=== PATIENT | male | born 1940 | race Caucasian/White ===

== ENCOUNTER 2019-06-09 12:58 | Inpatient (IN) ==
--- NOTE | 2019-06-09 13:11 | Emergency Department Note ---
Disposition Clinical Impression: Pancreatic cancer Qualifiers: Pancreatic malignancy location: unspecified Qualified Code(s): C25.9 - Malignant neoplasm of pancreas, unspecified Disposition: Admitted As Inpatient Condition: Fair Time of Disposition: 15:00 General Adult HPI - General Stated complaint: "sick for a few days- also has cancer" Time Seen by Provider: 06/09/19 13:03 Source: patient, family Mode of arrival: EMS Nursing Notes Reviewed: Yes Vital Signs Reviewed: Yes - History of Present Illness HPI Narrative: Patient is 78 yo man diagnosed with pancreatic cancer approximately 1.5 weeks ago who has not yet started treatment, although he was recently given paracentesis at the [facility] two days ago. He came to ED on 05/09/19 for evaluation of nausea, lack of appetite and difficulty urinating since yesterday. He denies fever, CP, SOB or symptoms of UTI such as burning or increased frequency. - Related Data Home Medications Medication Instructions Recorded Confirmed Haldol 06/09/19 06/09/19 Morphine 06/09/19 Sennosides [Senna] 06/09/19 Allergies Allergy/AdvReac Type Severity Reaction Status Date / Time No Known Allergies Allergy Verified 09/25/17 22:45 All systems ED: reviewed and negative except as stated. Gastrointestinal: Reports: abdominal pain, nausea, vomiting Past Medical History - Past Medical History Attestation: Yes The following information was validated with the patient. Medical history: Reports: arthritis, cancer, coronary artery disease, GERD, hyperlipidemia Surgical history: Reports: herniorrhaphy Psychiatric history: Reports: no psych history - Social History Smoking Status: Never smoker Alcohol use: Reports: none Drug use: Reports: none Physical Exam PE Gen: AOx3, lethargic but arouses to verbal HEENT: No lymphadenopathy. Pupils equal and reactive. Cardio: Regular rate and rhythm, no murmur, no peripheral edema, good perfusion to all extremities, no cyanosis Resp: Equal breath sounds bilaterally, no wheeze, no cough GI: Abdomen distended, tender to palpation in all quadrants. No ecchymoses, no rash. : No suprapubic tenderness or distention MSK: Normal ROM, no joint swelling or erythema Neuro: CNI-XII intact, strength and sensation WNL Psych: Appropriate affect Course Vital Signs Temperature 98.1 F 06/09/19 13:07 Pulse Rate 123 06/09/19 13:07 Respiratory Rate 16 06/09/19 13:07 Blood Pressure 139/106 06/09/19 13:07 O2 Sat by Pulse Oximetry 93 06/09/19 13:07 Temperature 97.9 F 06/09/19 18:44 Pulse Rate 118 06/09/19 18:44 Respiratory Rate 17 06/09/19 18:44 Blood Pressure 119/65 06/09/19 18:44 O2 Sat by Pulse Oximetry 92 06/09/19 18:44 Oxygen Delivery Oxygen Delivery Room Air Medical Decision Making - Medical Records Medical records reviewed: Yes I reviewed the patient's medical records. - Lab Data Lab results reviewed: Yes I reviewed the patient's lab results. Result diagrams: 06/09/19 13:24 06/09/19 13:24 Lab Results 06/09/19 06/09/19 06/09/19 Range/Units 13:24 13:24 13:24 WBC 5.4 (4.3-11.1) K/mcL RBC 4.07 L (4.19-5.50) M/mcL Hgb 12.7 L (12.9-16.9) g/dL Hct 38.7 (37.5-50.1) % MCV 95.1 (83.0-100.0) fL MCH 31.2 (28.0-33.3) pg MCHC 32.8 (31.6-35.5) g/dL RDW 13.2 (11.5-14.5) % Plt Count 213 (140-400) K/mcL MPV 10.0 (9.4-12.4) fL Seg Neutrophils % 64.0 % Band Neutrophils % 14.0 H (0-4) % Lymphocytes % 10.0 % Monocytes % 12.0 % Neutrophils # 4.2 (1.6-8.9) K/mcL Lymphocytes # 0.5 L (0.6-4.6) K/mcL Monocytes # 0.7 (0.0-1.3) K/mcL Platelet Estimate Normal (Normal) Sodium 129 L (136-145) mEq/L Potassium 5.4 H (3.5-5.1) mEq/L Chloride 94 L (98-107) mEq/L Carbon Dioxide 24 (23-29) mEq/L BUN 30 H (8-23) mg/dL Creatinine 0.69 L (0.70-1.30) mg/dL Est GFR ( Amer) > 60 (> 60) Est GFR (Non-Af Amer) > 60 (> 60) BUN/Creatinine Ratio 43 H (6-26) Glucose 118 H (70-105) mg/dL Calculated Osmolality 275 L (280-300) Lactic Acid 1.6 (0.5-2.2) mmol/L Calcium 8.8 (8.6-10.3) mg/dL Total Bilirubin 1.4 H (0.3-1.0) mg/dL AST 43 H (13-39) Units/L ALT 29 (7-52) Units/L Alkaline Phosphatase 318 H (34-104) Units/L Serum Total Protein 6.3 L (6.4-8.9) g/dL Albumin 3.1 L (3.5-5.7) g/dL Globulin 3.2 (2.4-3.5) g/dL Albumin/Globulin Ratio 1.0 L (1.1-2.2) Lipase < 3 L (11-82) Units/L Critical Care Time Critical Care Time: Yes Total Critical Care Time: 30 Attestation: The high probability of a clinically significant, sudden or life threatening deterioration of the [] system(s) required my full and direct attention, intervention and personal management. The aggregate critical care time was [] minutes. This time is in addition to time spent performing reported procedures but includes the following: [] Data Review and interpretation [] Patient assessment and monitoring of vital signs [] Documentation [] Medication orders and management Attestation Statement - Attestation Attestation: I reviewed the residents documentation and agree with the residents assessment and plan of care. I have personally had face to face time with the patient. (Brief History, Brief Exam, and MDM) I personally supervised and was present for the amezquita/critical portions of the following procedures completed by the huy ross: (add procedures performed here). [id number] time provided I attest to supervising the resident physician's interpretation of ECG Patient arrives by EMS complaining of nausea and vomiting. He has a known history of pancreatic cancer. He is clutching the emesis bag at the time of my exam. He is tachycardic upon arrival.
[2019-06-09] MEDS ORDERED: 0.9 % Sodium Chloride 1,000 ML IVC ONE (13:17)
[2019-06-09] MEDS ORDERED: Ondansetron 4 MG/2 ML VIAL IVP ONE (13:17)
[2019-06-09 13:45] LABS: Hematocrit 38.7 % (37.5-50.1); Hemoglobin 12.7 g/dL (12.9-16.9); Mean Corpuscular HGB Conc 32.8 g/dL (31.6-35.5); Mean Corpuscular Hemoglobin 31.2 pg (28.0-33.3); Mean Corpuscular Volume 95.1 fL (83.0-100.0); Monocytes # 0.7 K/mcL (0.0-1.3); Platelet Count 213 K/mcL (140-400); Red Blood Count 4.07 M/mcL (4.19-5.50); Red Cell Distribution Width 13.2 % (11.5-14.5); White Blood Count 5.4 K/mcL (4.3-11.1)
[2019-06-09 14:00] LABS: Alanine Aminotransferase 29 Units/L (7-52); Albumin 3.1 g/dL (3.5-5.7); Alkaline Phosphatase 318 Units/L (34-104); Aspartate Amino Transferase 43 Units/L (13-39); BUN/Creatinine Ratio 43 (6-26); Bilirubin,Total 1.4 mg/dL (0.3-1.0); Blood Urea Nitrogen 30 mg/dL (8-23); Calcium 8.8 mg/dL (8.6-10.3); Carbon Dioxide 24 mEq/L (23-29); Chloride 94 mEq/L (98-107); Globulin 3.2 g/dL (2.4-3.5); Glucose 118 mg/dL (70-105); Lipase < 3 Units/L (11-82); Osmolality,Calculated 275 (280-300); Potassium 5.4 mEq/L (3.5-5.1); Sodium 129 mEq/L (136-145); Total Protein 6.3 g/dL (6.4-8.9); eGFR For African Americans > 60 (> 60); eGFR For Non-African Americans > 60 (> 60)
[2019-06-09 14:25] LABS: Lymphocytes # 0.5 K/mcL (0.6-4.6); Neutrophils # 4.2 K/mcL (1.6-8.9); Platelet Estimate Normal (Normal)
--- NOTE | 2019-06-09 15:00 | Emergency Department Note ---
Disposition Clinical Impression: Pancreatic cancer Qualifiers: Pancreatic malignancy location: unspecified Qualified Code(s): C25.9 - Malignant neoplasm of pancreas, unspecified Disposition: Admitted As Inpatient Condition: Fair Forms: ED Satisfaction Letter Time of Disposition: 15:49 Nausea/Vomiting/Diarrhea HPI - General Chief complaint: ED Nausea/Vomiting/Diarrhea Stated complaint: "sick for a few days- also has cancer" Time Seen by Provider: 06/09/19 13:03 Source: patient, family Mode of arrival: EMS Nursing Notes Reviewed: Yes Vital Signs Reviewed: Yes - History of Present Illness HPI Narrative: Patient is 78 yo man diagnosed w/ pancreatic cancer within last 1.5 weeks who came to ED for nausea and vomiting x one day on 06/09/19. He is not currently receiving treatment for the cancer, but did undergo paracentesis at the [facility] this week. Yesterday he started vomiting and has had little PO intake. His main concern is the nausea. He also has abdominal tenderness, but no CP or SOB. He denies fever, confusion, dysuria, diarrhea or other concerns. - Related Data Home Medications Medication Instructions Recorded Confirmed Haldol 06/09/19 06/09/19 Morphine 06/09/19 Sennosides [Senna] 06/09/19 Allergies Allergy/AdvReac Type Severity Reaction Status Date / Time No Known Allergies Allergy Verified 09/25/17 22:45 All systems ED: reviewed and negative except as stated. Gastrointestinal: Reports: abdominal pain, nausea, vomiting Past Medical History - Past Medical History Attestation: Yes The following information was validated with the patient. Source: patient, obtained from family Medical history: Reports: arthritis, cancer, coronary artery disease, GERD, hyperlipidemia Surgical history: Reports: herniorrhaphy Psychiatric history: Reports: no psych history - Social History Smoking Status: Never smoker Alcohol use: Reports: none Drug use: Reports: none Physical Exam PE Gen: AOx3, le HEENT: No lymphadenopathy. Pupils equal and reactive. Cardio: Regular rate and rhythm, no murmur, no peripheral edema, goood perfusion to all extremities, no cyanosis Resp: Equal breath sounds bilaterally, no wheeze, no cough GI: Abdomen soft, nondistended, nontender to palpation. No ecchymoses, no rash. : No suprapubic tenderness or distention MSK: Normal ROM, no joint swelling or erythema Neuro: CNI-XII intact, strength and sensation WNL Psych: Appropriate affect - General General appearance: lethargic Course Course Narrative: VS stable, mild tachycardia, afebrile, patient has continued nausea. EKG, CT abdomen/pelvis, CXR ordered to evaluate for cardiac, pulmonary and abdominal pathology. 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 Per [facility], ascitic fluid was malignant, without no indications of SBP on gram stain or cytology. Patient feeling better after Reglan and fluid bolus. Surgery consult ruled out acute intervention. Hospitalist agreed with plan to admit for hydration, bowel rest and nausea control. Patient requested to remain at [facility] rather than transfer to [facility]. - Medical Records Medical records reviewed: Yes I reviewed the patient's medical records. - Lab Data Lab results reviewed: Yes I reviewed the patient's lab results. Result diagrams: 06/09/19 13:24 06/09/19 13:24 Lab Results 06/09/19 06/09/19 06/09/19 Range/Units 13:24 13:24 13:24 WBC 5.4 (4.3-11.1) K/mcL RBC 4.07 L (4.19-5.50) M/mcL Hgb 12.7 L (12.9-16.9) g/dL Hct 38.7 (37.5-50.1) % MCV 95.1 (83.0-100.0) fL MCH 31.2 (28.0-33.3) pg MCHC 32.8 (31.6-35.5) g/dL RDW 13.2 (11.5-14.5) % Plt Count 213 (140-400) K/mcL MPV 10.0 (9.4-12.4) fL Seg Neutrophils % 64.0 % Band Neutrophils % 14.0 H (0-4) % Lymphocytes % 10.0 % Monocytes % 12.0 % Neutrophils # 4.2 (1.6-8.9) K/mcL Lymphocytes # 0.5 L (0.6-4.6) K/mcL Monocytes # 0.7 (0.0-1.3) K/mcL Platelet Estimate Normal (Normal) Sodium 129 L (136-145) mEq/L Potassium 5.4 H (3.5-5.1) mEq/L Chloride 94 L (98-107) mEq/L Carbon Dioxide 24 (23-29) mEq/L BUN 30 H (8-23) mg/dL Creatinine 0.69 L (0.70-1.30) mg/dL Est GFR ( Amer) > 60 (> 60) Est GFR (Non-Af Amer) > 60 (> 60) BUN/Creatinine Ratio 43 H (6-26) Glucose 118 H (70-105) mg/dL Calculated Osmolality 275 L (280-300) Lactic Acid 1.6 (0.5-2.2) mmol/L Calcium 8.8 (8.6-10.3) mg/dL Total Bilirubin 1.4 H (0.3-1.0) mg/dL AST 43 H (13-39) Units/L ALT 29 (7-52) Units/L Alkaline Phosphatase 318 H (34-104) Units/L Serum Total Protein 6.3 L (6.4-8.9) g/dL Albumin 3.1 L (3.5-5.7) g/dL Globulin 3.2 (2.4-3.5) g/dL Albumin/Globulin Ratio 1.0 L (1.1-2.2) Lipase < 3 L (11-82) Units/L - Radiology Data Radiology results reviewed: Yes I reviewed the patient's radiology results. Abdomen CT 06/09/19 13:15 IMPRESSION: Moderate amount of ascites. Peritoneal carcinomatosis. Pancreatic body malignant mass with metastatic disease to the liver. Metastatic adenopathy also present in the abdomen. Mild dilation of small bowel loops throughout the abdomen, which may either be due to ileus or low grade distal obstruction. D/ / Mario Beasley MD / Mario Beasley MD Interpreting Provider: Mario Beasley MD Chest X-Ray 06/09/19 13:18 IMPRESSION: Low lung volumes with bibasilar atelectasis. Superimposed pneumonia especially in the right lung base is considered D/ / Mario Beasley MD / Mario Beasley MD Interpreting Provider: Mario Beasley MD - EKG Data EKG attestation: Yes I reviewed and interpreted this EKG. When compared to previous EKG there are: previous EKG unavailable (R) Interpretation: no acute changes
[2019-06-09] MEDS ORDERED: Metoclopramide 10 MG/2 ML VIAL IVP ONE (15:10)
[2019-06-09] MEDS ORDERED: cefTRIAXone 1,000 MG in Water for inj. (sterile) 10 ML IVP ONE (15:18)
[2019-06-09] MEDS ORDERED: Azithromycin 500 MG in 0.9 % Sodium Chloride 250 ML IVPB ONE (15:19)
[2019-06-09] MEDS ORDERED: 0.9 % Sodium Chloride 500 ML IVC ONE (15:20)
--- NOTE | 2019-06-09 16:53 | Internal Med History&Physical ---
<Doreen So - Last Filed: 06/09/19 19:14> Date of Encounter: 06/09/19 Internal Medicine - H&P: HPI History of present illness: Mr. Estrada is a 78 year old male Internal Medicine - H&P: Meds Haldol 06/09/19 [History] Morphine 06/09/19 [History] Sennosides [Senna] 06/09/19 [History] Allergy/AdvReac Type Severity Reaction Status Date / Time No Known Allergies Allergy Verified 09/25/17 22:45 All Systems PM: A 10-system review of systems was performed and is negative for pertinent findings except as documented above in the HPI. - Constitutional Vitals: Temp Pulse Resp BP Pulse Ox 97.9 F 118 17 119/65 92 06/09/19 18:44 06/09/19 18:44 06/09/19 18:44 06/09/19 18:44 06/09/19 18:44 Internal Med - H&P Results - Labs CBC & Chem 7: 06/09/19 13:24 06/09/19 13:24 Labs: Short CBC 06/09/19 Range/Units 13:24 WBC 5.4 (4.3-11.1) K/mcL Hgb 12.7 L (12.9-16.9) g/dL Hct 38.7 (37.5-50.1) % Plt Count 213 (140-400) K/mcL Neutrophils # 4.2 (1.6-8.9) K/mcL BMP 06/09/19 13:24 Sodium 129 L Potassium 5.4 H Chloride 94 L Carbon Dioxide 24 BUN 30 H Creatinine 0.69 L Glucose 118 H Calcium 8.8 Liver Function 06/09/19 Range/Units 13:24 Total Bilirubin 1.4 H (0.3-1.0) mg/dL AST 43 H (13-39) Units/L ALT 29 (7-52) Units/L Alkaline Phosphatase 318 H (34-104) Units/L Albumin 3.1 L (3.5-5.7) g/dL - Impressions ITS Impressions Abdomen CT 06/09/19 13:15 IMPRESSION: Moderate amount of ascites. Peritoneal carcinomatosis. Pancreatic body malignant mass with metastatic disease to the liver. Metastatic adenopathy also present in the abdomen. Mild dilation of small bowel loops throughout the abdomen, which may either be due to ileus or low grade distal obstruction. D/ / Mario Beasley MD / Mario Beasley MD Interpreting Provider: Mario Beasley MD Chest X-Ray 06/09/19 13:18 IMPRESSION: Low lung volumes with bibasilar atelectasis. Superimposed pneumonia especially in the right lung base is considered D/ / Mario Beasley MD / Mario Beasley MD Interpreting Provider: Mario Beasley MD - Time Spent With Patient Total time spent is greater than 50% in coordination of care (as documented) at patient's floor/unit and/or counseling patient: - Attending Attestation I saw evaluated and examined this patient and reviewed objective data including labs and my medical decision-making was reviewed with the Resident Physician. I agree with the documented findings, disposition and treatment plan as described except to any changes set forth below. We independently had [id number] contact with the patient. <ElinaAngie I - Last Filed: 06/09/19 20:00> Date of Encounter: 06/09/19 Time of Encounter: 06:15 Internal Medicine - H&P: HPI History of present illness: Mr. Estrada is a 78 year old male with PMH of pancreatic cancer diagnosed on 2018 with metastasis to liver and lung presented to the hospital with complains of nausea 3 attacks of vomiting in the past 4 days , constipation and feeling of fullness, although he was recently given paracentesis two days ago And Per [facility], ascitic fluid was malignant, without no indications of SBP on gram stain or cytology. patient denies any skin discoloration but he did have Sob specially when he lay back . No chest pain no headaches , no dysuria or decrease UOP . At ER Abdomen CT 06/09/19 showes Moderate amount of ascites ,Peritoneal carcinomatosis.Pancreatic body malignant mass with metastatic disease to the liver.Metastatic adenopathy also present in the abdomen. Mild dilation of small bowel loops throughout the abdomen, which may either be due to ileus or low grade distal obstruction. CXR Low lung volumes with bibasilar atelectasis. Superimposed pneumonia especially in the right lung base is considered . on admission his vitals were T 98.1 , HR 121 , RR 14 , BP 134/74 , LABS NA 125 , K 5.4 C 0.6 BUN 30 glucose 118 , lipase <3 patient was treated with 2 blouses of IV NACL , zofran phenergan and a dose of azithro and rocephin Past Med Surg Social Fam HX - Past Medical History Medical history: arthritis, cancer, coronary artery disease, GERD, hyperlipidemia Additional medical history: pancreatic cancer. recent paracentesis Psychiatric history: no psych history - Past Surgical History Surgical History: herniorrhaphy Additional surgical history: B/L inguinal hernia repairs - Social History Smoking Status: Never smoker Alcohol use: none Drug use: none All Systems PM: A 10-system review of systems was performed and is negative for pertinent findings except as documented above in the HPI. - Constitutional Vitals: Temp Pulse Resp BP Pulse Ox 98.1 F 121 14 134/74 92 06/09/19 13:07 06/09/19 15:43 06/09/19 15:43 06/09/19 15:43 06/09/19 15:43 Exam: General: no acute distress , A&AX3 HEENT: Atraumatic, Normocephaly, sclera unicteric Neck: supple , Full ROM , trachea midline Cardiac: RRR , S1+. S2+ Lungs: Normal Breath Sounds Bilaterally, No Wheeze, Rales, Rhonchi Abdomen: Distende , hard to palpate . Tender ,no organomegaly , -ve bowel sounds , dull to percuss Extremities: bilateral LL edema , Normal Pulses Skin : intact , Normal color Psychiatric : normal affect, normal mood Nuero : alert, normal gait, oriented X3 Internal Med - H&P Results - Labs CBC & Chem 7: 06/09/19 13:24 06/09/19 13:24 Labs: Short CBC 06/09/19 Range/Units 13:24 WBC 5.4 (4.3-11.1) K/mcL Hgb 12.7 L (12.9-16.9) g/dL Hct 38.7 (37.5-50.1) % Plt Count 213 (140-400) K/mcL Neutrophils # 4.2 (1.6-8.9) K/mcL BMP 06/09/19 13:24 Sodium 129 L Potassium 5.4 H Chloride 94 L Carbon Dioxide 24 BUN 30 H Creatinine 0.69 L Glucose 118 H Calcium 8.8 Liver Function 06/09/19 Range/Units 13:24 Total Bilirubin 1.4 H (0.3-1.0) mg/dL AST 43 H (13-39) Units/L ALT 29 (7-52) Units/L Alkaline Phosphatase 318 H (34-104) Units/L Albumin 3.1 L (3.5-5.7) g/dL - Impressions ITS Impressions Abdomen CT 06/09/19 13:15 IMPRESSION: Moderate amount of ascites. Peritoneal carcinomatosis. Pancreatic body malignant mass with metastatic disease to the liver. Metastatic adenopathy also present in the abdomen. Mild dilation of small bowel loops throughout the abdomen, which may either be due to ileus or low grade distal obstruction. D/ / Mario Beasley MD / Mario Beasley MD Interpreting Provider: Mario Beasley MD Chest X-Ray 06/09/19 13:18 IMPRESSION: Low lung volumes with bibasilar atelectasis. Superimposed pneumonia especially in the right lung base is considered D/ / Mario Beasley MD / Mario Beasley MD Interpreting Provider: Mario Beasley MD - Assessment and Plan (1) Hyponatremia Current Visit: Yes Status: Acute Assessment and plan: His Na level is 125 most likley due to hypervolemia due to liver cirrhosis and ascitis will give him 20 mg IV lasix (2) Hyperkalemia Current Visit: Yes Status: Acute Assessment and plan: K is 5.5 will recheck it tomorrow morning 20 mg lasix (3) Constipation Current Visit: Yes Status: Acute Assessment and plan: It could be due to SBO vs side effect of pain killers abdomen CT : There is mild dilation of small bowel loops throughout the abdomen measuring up to 3 cm. Normal caliber of the colon. NPO surgery is consulted senna plus 2 each PO BID Qualifiers: Qualified Code(s): K59.00 - Constipation, unspecified (4) Generalized abdominal fullness Current Visit: Yes Status: Acute Assessment and plan: mostly due to volume overload due to ascitis as a result of metastatic pancreatic cancer CT : There are numerous ill-defined low-density lesions throughout the liver measuring up to approximately 3 cm. There is a mass in the body of the pancreas measuring 5.3 x 4.0 cm on axial image 64. GI/Bowel: There is mild dilation of small bowel loops throughout the abdomen measuring up to 3 cm. Normal caliber of the colon. Peritoneum/Retroperitoneum: There is a moderate amount of diffuse ascites. There is nodularity along the peritoneal lining and throughout the omentum and mesentery. Mildly enlarged lymph nodes are present as well. NPO surgery is consulted IV lasix 20 mg senna plus 2 each PO BID (5) Nausea & vomiting Current Visit: Yes Status: Acute Assessment and plan: patient has aknown history of pancreatic cancer with metastasis NPO zofran PRN Qualifiers: Qualified Code(s): R11.2 - Nausea with vomiting, unspecified (6) Pneumonia Current Visit: Yes Status: Acute Assessment and plan: patient also complains of SOB could be due to pnumonia or volume overload fromn metastatic pancreatic cancer CXR : Low lung volumes with bibasilar atelectasis. Superimposed pneumonia especially in the right lung base is considered we start him on zosin Qualifiers: Qualified Code(s): J18.9 - Pneumonia, unspecified organism (7) Tachycardia Current Visit: Yes Status: Acute Assessment and plan: It could be due to pain or volume overload or pnumonia we treat his pain with oxycodone 5 mg PRN lasix 20 mg zosin day 1 (8) Pancreatic cancer Current Visit: Yes Status: Acute Assessment and plan: patient has metastasis pancreatic cancer diagnose on may 20 his recent paracetesis was positive for malignancy CT : There are numerous ill-defined low-density lesions throughout the liver measuring up to approximately 3 cm. There is a mass in the body of the pancreas measuring 5.3 x 4.0 cm on axial image 64. GI/Bowel: There is mild dilation of small bowel loops throughout the abdomen measuring up to 3 cm. Normal caliber of the colon. Peritoneum/Retroperitoneum: There is a moderate amount of diffuse ascites. There is nodularity along the peritoneal lining and throughout the omentum and mesentery. Mildly enlarged lymph nodes are present as well. NPO surgery is consulted IV lasix 20 mg senna plus 2 each PO BID zofran PRN Qualifiers: Pancreatic malignancy location: unspecified Qualified Code(s): C25.9 - Malignant neoplasm of pancreas, unspecified - Time Spent With Patient Total time spent is greater than 50% in coordination of care (as documented) at patient's floor/unit and/or counseling patient:
[2019-06-09] MEDS ORDERED: Naloxone 0.4 MG/ML INJ IVP PRN (18:44)
[2019-06-09] MEDS ORDERED: Ondansetron 4 MG/2 ML VIAL IVP PRN (18:44)
[2019-06-09] MEDS ORDERED: Furosemide 20 MG/2 ML VIAL IVP ONE (19:45)
[2019-06-09] MEDS ORDERED: *HR* Metoprolol 5 MG/5 ML VIAL IVP PRN (19:57)
[2019-06-09] MEDS: Sennosides/Docusate Sodium TABLET PO SCH (21:45)
[2019-06-10] MEDS: Piperacillin/Tazobactam 3.375 GM in 0.9 % Sodium Chloride Mini Bag 100 ML IVPB SCH ×3 (01:06→16:27)
[2019-06-10 05:27] LABS: Hematocrit 36.6 % (37.5-50.1); Hemoglobin 11.9 g/dL (12.9-16.9); Lymphocytes # 0.3 K/mcL (0.6-4.6); Mean Corpuscular HGB Conc 32.5 g/dL (31.6-35.5); Mean Corpuscular Hemoglobin 31.1 pg (28.0-33.3); Mean Corpuscular Volume 95.6 fL (83.0-100.0); Mean Platelet Volume 9.7 fL (9.4-12.4); Monocytes # 0.7 K/mcL (0.0-1.3); Platelet Count 153 K/mcL (140-400); Red Blood Count 3.83 M/mcL (4.19-5.50); Red Cell Distribution Width 13.3 % (11.5-14.5); White Blood Count 4.3 K/mcL (4.3-11.1)
[2019-06-10 05:34] LABS: INR 1.4; Prothrombin Time 15.7 Seconds (9.4-12.1)
[2019-06-10 06:22] LABS: Neutrophils # 3.3 K/mcL (1.6-8.9); Platelet Estimate Normal (Normal)
--- NOTE | 2019-06-10 07:58 | Internal Med Progress Note ---
<Angie Antoine I - Last Filed: 06/10/19 13:56> Hospitalist Progress Note - Encounter Date of Encounter: 06/10/19 Time of Encounter: 09:05 - Subjective Interval History: Today patient is seen and examined at bedside , Patient still complains of abdominal pain and nausea but improved since yesterday , no vomiting since yesterday , he peed 3 times during the night which is the normal for him , his dyspnea improved . no chest pain , no fever or chills - Exam Vitals: Temp Pulse Resp BP Pulse Ox 98.3 F 115 16 122/81 95 06/10/19 07:35 06/10/19 07:35 06/10/19 07:35 06/10/19 07:35 06/10/19 07:35 Exam: General: no acute distress , A&AX3 HEENT: Atraumatic, Normocephaly, sclera unicteric Neck: supple , Full ROM , trachea midline Cardiac: RRR , S1+. S2+ Lungs: Normal Breath Sounds Bilaterally, No Wheeze, Rales, Rhonchi Abdomen: Distended , hard to palpate . Tender ,no organomegaly , -ve bowel sounds , dull to percussion Extremities: bilateral LL edema , Normal Pulses Skin : intact , Normal color Psychiatric : normal affect, normal mood Nuero : alert, normal gait, oriented X3 - Assessment and Plan (1) Generalized abdominal fullness Current Visit: Yes Status: Acute Assessment and Plan: mostly due to volume overload due to ascitis as a result of metastatic pancreatic cancer CT : There are numerous ill-defined low-density lesions throughout the liver measuring up to approximately 3 cm. There is a mass in the body of the pancreas measuring 5.3 x 4.0 cm on axial image 64. GI/Bowel: There is mild dilation of small bowel loops throughout the abdomen measuring up to 3 cm. Normal caliber of the colon. Peritoneum/Retroperitoneum: There is a moderate amount of diffuse ascites. There is nodularity along the peritoneal lining and throughout the omentum and mesentery. Mildly enlarged lymph nodes are present as well. According to surgery consult : Surgery would not be helpful. I would recommend palliative care received IV lasix 20 mg zofran PRN palliative care is consulted (2) Nausea & vomiting Current Visit: Yes Status: Acute Assessment and Plan: patient has aknown history of pancreatic cancer with metastasis zofran PRN might consider Haldo if no response to zofran (3) Pneumonia Current Visit: Yes Status: Acute Assessment and Plan: patient also complains of SOB could be due to pnumonia or volume overload fromn metastatic pancreatic cancer CXR : Low lung volumes with bibasilar atelectasis. Superimposed pneumonia especially in the right lung base is considered His wbc is 4.2 procalcitonin 1.49 on zosin day 2 06/09/2019 blood cultures are pending (4) Hyponatremia Current Visit: Yes Status: Acute Assessment and Plan: most likley due to hypervolemia due to liver cirrhosis and ascitis or decrease oral intake will give him 20 mg IV lasix his Na today is 132 [id number] yesterday recheck BMP at morning (5) Hyperkalemia Current Visit: Yes Status: Acute Assessment and Plan: resolved . his K today is 4.7 (6) Constipation Current Visit: Yes Status: Acute Assessment and Plan: he is on senna plus 2 BID , no bowel movement yet (7) Tachycardia Current Visit: Yes Status: Acute Assessment and Plan: he is still tachy HR 115 It could be due to pain or volume overload or pneumonia we treat his pain with oxycodone 5 mg PRN for mild pain and 10 mg for moderate to sever pain PRN EKG is ordered (8) Pancreatic cancer Current Visit: Yes Status: Acute Assessment and Plan: diagnosed with metastatic pancreatic cancer. He presented with nausea and vomiting as well as segmental dilation of the small bowel. He did have a paracentesis at the [facility] that demonstrated metastatic pancreatic cancer and the ascites quickly reaccumulated. palliative care consulted - Time Spent with Patient Total time spent is greater than 50% in coordination of care (as documented) at patient's floor/unit and/or counseling patient: Internal Medicine: Result - Labs CBC & Chem 7: 06/10/19 04:49 06/10/19 08:25 Labs: Short CBC 06/09/19 06/10/19 Range/Units 13:24 04:49 WBC 5.4 4.3 (4.3-11.1) K/mcL Hgb 12.7 L 11.9 L (12.9-16.9) g/dL Hct 38.7 36.6 L (37.5-50.1) % Plt Count 213 153 (140-400) K/mcL Neutrophils # 4.2 3.3 (1.6-8.9) K/mcL BMP 06/09/19 13:24 Sodium 129 L Potassium 5.4 H Chloride 94 L Carbon Dioxide 24 BUN 30 H Creatinine 0.69 L Glucose 118 H Calcium 8.8 Liver Function 06/09/19 Range/Units 13:24 Total Bilirubin 1.4 H (0.3-1.0) mg/dL AST 43 H (13-39) Units/L ALT 29 (7-52) Units/L Alkaline Phosphatase 318 H (34-104) Units/L Albumin 3.1 L (3.5-5.7) g/dL - ABG Interpretation ABG results: PT/INR, D-dimer PT 15.7 Seconds (9.4-12.1) H 06/10/19 04:49 - Impressions Impressions Abdomen CT 06/09/19 13:15 IMPRESSION: Moderate amount of ascites. Peritoneal carcinomatosis. Pancreatic body malignant mass with metastatic disease to the liver. Metastatic adenopathy also present in the abdomen. Mild dilation of small bowel loops throughout the abdomen, which may either be due to ileus or low grade distal obstruction. D/ / Mario Beasley MD / Mario Beasley MD Interpreting Provider: Mario Beasley MD Chest X-Ray 06/09/19 13:18 IMPRESSION: Low lung volumes with bibasilar atelectasis. Superimposed pneumonia especially in the right lung base is considered D/ / Mario Beasley MD / Mario Beasley MD Interpreting Provider: Mario Beasley MD Consult Discharge Plan - Plan Referrals: NONE,PCP [Primary Care Provider] - <Doreen So - Last Filed: 06/10/19 22:24> Hospitalist Progress Note - Encounter Date of Encounter: 06/10/19 - Exam Vitals: Temp Pulse Resp BP Pulse Ox 98.2 F 105 17 105/69 94 06/10/19 10:59 06/10/19 10:59 06/10/19 10:59 06/10/19 10:59 06/10/19 10:59 - Time Spent with Patient Total time spent is greater than 50% in coordination of care (as documented) at patient's floor/unit and/or counseling patient: Internal Medicine: Result - Labs CBC & Chem 7: 06/10/19 04:49 06/10/19 08:25 Labs: Short CBC 06/10/19 Range/Units 04:49 WBC 4.3 (4.3-11.1) K/mcL Hgb 11.9 L (12.9-16.9) g/dL Hct 36.6 L (37.5-50.1) % Plt Count 153 (140-400) K/mcL Neutrophils # 3.3 (1.6-8.9) K/mcL BMP 06/10/19 08:25 Sodium 132 L Potassium 4.7 Chloride 99 Carbon Dioxide 22 L BUN 25 H Creatinine 0.59 L Glucose 98 Calcium 8.2 L Liver Function 06/10/19 Range/Units 08:25 Total Bilirubin 1.0 (0.3-1.0) mg/dL AST 35 (13-39) Units/L ALT 24 (7-52) Units/L Alkaline Phosphatase 270 H (34-104) Units/L Albumin 2.7 L (3.5-5.7) g/dL - ABG Interpretation ABG results: PT/INR, D-dimer PT 15.7 Seconds (9.4-12.1) H 06/10/19 04:49 - Attending Attestation I saw evaluated and examined this patient and reviewed objective data including labs and my medical decision-making was reviewed with the Resident Physician. I agree with the documented findings, disposition and treatment plan as described except to any changes set forth below. We independently had [id number] contact with the patient. Patient states abdominal pain stable, abdominal distension is slightly better than yesterday. Denies fevers/chills, n/v. + flatus. Exam: No acute distress, resting in bed, CVS: HR RRR, lungs course throughout, abd: soft, + TTP epigastric region about same since yesterday. Abdominal distension improved. Lower extremity edema 1+ equal bilaterally. VS: Reviewed, episodes of tachycardia persists with some normal HR as well. Afebrile, BP normal. Labs: reviewed, sodium improved from 129 to 132. No leukocytosis. Patient is likely intravascularly volume depleted with peripheral edema. From a comfort measure, he seems to benefit from diuresis with caution. Continue IV Lasix trial and monitor renal function. Continue antibiotics, currently does not appear septic. Prognosis is poor, no surgical intervention is advised after Gen Surgery e valuation. He declined a Palliative consult while hospitalized at [facility] recently, but today is agreeable to a consult. Consult made, await recommendations. <Angie Antoine I - Last Filed: 06/10/19 13:56> (2) Nausea & vomiting Qualifiers: Qualified Code(s): R11.2 - Nausea with vomiting, unspecified (3) Pneumonia Qualifiers: Qualified Code(s): J18.9 - Pneumonia, unspecified organism (6) Constipation Qualifiers: Qualified Code(s): K59.00 - Constipation, unspecified (8) Pancreatic cancer Qualifiers: Pancreatic malignancy location: body of pancreas Qualified Code(s): C25.1 - Malignant neoplasm of body of pancreas
[2019-06-10] MEDS: Sennosides/Docusate Sodium TABLET PO SCH ×2 (08:13→21:12)
[2019-06-10 09:15] LABS: Alanine Aminotransferase 24 Units/L (7-52); Albumin 2.7 g/dL (3.5-5.7); Albumin/Globulin Ratio 0.9 (1.1-2.2); Alkaline Phosphatase 270 Units/L (34-104); Aspartate Amino Transferase 35 Units/L (13-39); BUN/Creatinine Ratio 42 (6-26); Blood Urea Nitrogen 25 mg/dL (8-23); Calcium 8.2 mg/dL (8.6-10.3); Carbon Dioxide 22 mEq/L (23-29); Chloride 99 mEq/L (98-107); Glucose 98 mg/dL (70-105); Osmolality,Calculated 278 (280-300); Potassium 4.7 mEq/L (3.5-5.1); Sodium 132 mEq/L (136-145); Total Protein 5.7 g/dL (6.4-8.9); eGFR For African Americans > 60 (> 60); eGFR For Non-African Americans > 60 (> 60)
[2019-06-10] MEDS ORDERED: *HR* Metoprolol 5 MG/5 ML VIAL IVP ONE (09:39)
--- NOTE | 2019-06-10 10:33 | AcuteCare Surgery Consult Note ---
Date of Encounter: 06/10/19 Time of Encounter: 07:40 Assessment and Plan (1) Pancreatic cancer Current Visit: Yes Status: Acute The patient is seen and evaluated with the acute care surgery team. He has nausea and vomiting associated with widely metastatic intraperitoneal pancreatic cancer. Surgery would not be helpful. I would recommend palliative care Qualifiers: Pancreatic malignancy location: body of pancreas Qualified Code(s): C25.1 - Malignant neoplasm of body of pancreas History of Present Illness Consult date: 06/10/19 Reason for consult: other History of present illness: The patient is seen and evaluated on morning rounds with the acute care surgery team. I personally reviewed his CAT scan of the abdomen. The patient has been diagnosed with metastatic pancreatic cancer. He presented with nausea and vomiting as well as segmental dilation of the small bowel. He does not have a nasogastric tube in and is not vomiting at time of evaluation. He did have a paracentesis at the [facility] that demonstrated metastatic pancreatic cancer and the ascites quickly reaccumulated. Next I personally reviewed the CAT scan of the abdomen. He has a large mid body pancreatic mass as well as omental caking and ascites. He also has adenopathy. Findings are consistent with widely metastatic intra-abdominal pancreatic cancer. Surgery will not be helpful at this point. This may be a terminal event. I would recommend palliative care management Past Med Surg Social Fam HX - Past Medical History Medical history: arthritis, cancer, coronary artery disease, GERD, hyperlipidemia Additional medical history: pancreatic cancer. recent paracentesis Psychiatric history: no psych history - Past Surgical History Surgical History: herniorrhaphy Additional surgical history: B/L inguinal hernia repairs - Social History Smoking Status: Never smoker Alcohol use: none Drug use: none Medications and Allergies Haloperidol 0.5 mg PO Q6H PRN 06/09/19 [History] Morphine Sulfate Immed Rel [Morphine Sulfate] 15 mg PO Q2H PRN 06/09/19 [History] Sennosides [Senna] 8.6 mg PO BID 06/09/19 [History] Atorvastatin Calcium [Lipitor] 20 mg PO DAILY 06/10/19 [History] Pantoprazole Sodium [Protonix] 40 mg PO DAILY 06/10/19 [History] Allergy/AdvReac Type Severity Reaction Status Date / Time cephalexin Allergy Hives Verified 06/10/19 10:25 clobetasol Allergy Hives Verified 06/10/19 10:25 prednisone Allergy Hives Verified 06/10/19 10:25 Review of Systems All systems PM: The remainder of the systems were reviewed and are negative General Surgery Exam Initial Vital Signs Temp Pulse Resp BP Pulse Ox 98.1 F 123 16 139/106 93 06/09/19 13:07 06/09/19 13:07 06/09/19 13:07 06/09/19 13:07 06/09/19 13:07 - General physical appearance moderate distress, cachectic, chronically ill - Respiratory normal respiratory effort, clear to auscultation - Cardiovascular Cardiovascular exam: Present: RRR, no murmurs/rubs/gallops - Abdomen Abdomen general surgery: Present: bowel sounds present, soft, non tender, distended (The patient has extensive ascites on physical examination) - Neurologic Present: CN 2-12 grossly intact, normal coordination, normal sensation - Psychiatric Psychiatric general surgery: Present: appropriate, oriented to person, oriented to place, oriented to time, speech is normal, memory intact Exam Initial Vital Signs Temp Pulse Resp BP Pulse Ox 98.1 F 123 16 139/106 93 06/09/19 13:07 06/09/19 13:07 06/09/19 13:07 06/09/19 13:07 06/09/19 13:07 Results - Labs 06/10/19 04:49 06/10/19 08:25 Abnormal lab results RBC 3.83 M/mcL (4.19-5.50) L 06/10/19 04:49 Hgb 11.9 g/dL (12.9-16.9) L 06/10/19 04:49 Hct 36.6 % (37.5-50.1) L 06/10/19 04:49 Band Neutrophils % 16.0 % (0-4) H 06/10/19 04:49 Lymphocytes # 0.3 K/mcL (0.6-4.6) L 06/10/19 04:49 PT 15.7 Seconds (9.4-12.1) H 06/10/19 04:49 Sodium 132 mEq/L (136-145) L 06/10/19 08:25 Potassium 5.4 mEq/L (3.5-5.1) H 06/09/19 13:24 Chloride 94 mEq/L (98-107) L 06/09/19 13:24 Carbon Dioxide 22 mEq/L (23-29) L 06/10/19 08:25 BUN 25 mg/dL (8-23) H 06/10/19 08:25 Creatinine 0.59 mg/dL (0.70-1.30) L 06/10/19 08:25 BUN/Creatinine Ratio 42 (6-26) H 06/10/19 08:25 Glucose 118 mg/dL (70-105) H 06/09/19 13:24 Calculated Osmolality 278 (280-300) L 06/10/19 08:25 Calcium 8.2 mg/dL (8.6-10.3) L 06/10/19 08:25 Total Bilirubin 1.4 mg/dL (0.3-1.0) H 06/09/19 13:24 AST 43 Units/L (13-39) H 06/09/19 13:24 Alkaline Phosphatase 270 Units/L (34-104) H 06/10/19 08:25 Serum Total Protein 5.7 g/dL (6.4-8.9) L 06/10/19 08:25 Albumin 2.7 g/dL (3.5-5.7) L 06/10/19 08:25 Albumin/Globulin Ratio 0.9 (1.1-2.2) L 06/10/19 08:25 Lipase < 3 Units/L (11-82) L 06/09/19 13:24 Procalcitonin 1.49 ng/mL (0.00-0.15) H 06/09/19 20:08 Diabetes panel 06/09/19 06/10/19 Range/Units 13:24 08:25 Sodium 129 L 132 L (136-145) mEq/L Potassium 5.4 H 4.7 (3.5-5.1) mEq/L Chloride 94 L 99 (98-107) mEq/L Carbon Dioxide 24 22 L (23-29) mEq/L BUN 30 H 25 H (8-23) mg/dL Creatinine 0.69 L 0.59 L (0.70-1.30) mg/dL Glucose 118 H 98 (70-105) mg/dL Calcium 8.8 8.2 L (8.6-10.3) mg/dL AST 43 H 35 (13-39) Units/L ALT 29 24 (7-52) Units/L Alkaline Phosphatase 318 H 270 H (34-104) Units/L Albumin 3.1 L 2.7 L (3.5-5.7) g/dL Calcium panel 06/09/19 06/10/19 Range/Units 13:24 08:25 Calcium 8.8 8.2 L (8.6-10.3) mg/dL Albumin 3.1 L 2.7 L (3.5-5.7) g/dL Pituitary panel 06/09/19 06/10/19 Range/Units 13:24 08:25 Sodium 129 L 132 L (136-145) mEq/L Potassium 5.4 H 4.7 (3.5-5.1) mEq/L Chloride 94 L 99 (98-107) mEq/L Carbon Dioxide 24 22 L (23-29) mEq/L BUN 30 H 25 H (8-23) mg/dL Creatinine 0.69 L 0.59 L (0.70-1.30) mg/dL Glucose 118 H 98 (70-105) mg/dL Calcium 8.8 8.2 L (8.6-10.3) mg/dL Adrenal panel 06/09/19 06/10/19 Range/Units 13:24 08:25 Sodium 129 L 132 L (136-145) mEq/L Potassium 5.4 H 4.7 (3.5-5.1) mEq/L Chloride 94 L 99 (98-107) mEq/L Carbon Dioxide 24 22 L (23-29) mEq/L BUN 30 H 25 H (8-23) mg/dL Creatinine 0.69 L 0.59 L (0.70-1.30) mg/dL Glucose 118 H 98 (70-105) mg/dL Calcium 8.8 8.2 L (8.6-10.3) mg/dL Total Bilirubin 1.4 H 1.0 (0.3-1.0) mg/dL AST 43 H 35 (13-39) Units/L ALT 29 24 (7-52) Units/L Alkaline Phosphatase 318 H 270 H (34-104) Units/L Albumin 3.1 L 2.7 L (3.5-5.7) g/dL All other labs normal. - Imaging CT scan - abdomen: image reviewed (The CAT scan of the abdomen is reviewed. The patient has a large pancreatic mass as well as ascites and omental caking findings are consistent with widely metastatic and chronic cancer) Consult Discharge Plan - Plan Referrals: NONE,PCP [Primary Care Provider] -
[2019-06-10] MEDS ORDERED: Furosemide 20 MG/2 ML VIAL IVP ONE (11:43)
--- NOTE | 2019-06-10 13:48 | Electrocardiograph Report ---
[place] [id number] Test Date: 2019-06-09 Pat Name: Stas Estrada Department: [id number] Room: 3A42 Gender: M [employer]: : 1940 Requested By: [id number] Order Number: [id number] Reading MD: Benson Red Measurements Intervals [place] Rate: 122 P: 41 [place]: 127 QRS: -11 QRSD: 77 T: 44 QT: 294 QTc: 419 Interpretive Statements Sinus tachycardia Low voltage, precordial leads Electronically Signed On 06-10-2019 13:47:15 EDT by Benson Red
--- NOTE | 2019-06-10 16:06 | Palliative - Consult Note ---
<Nehal Holley B - Last Filed: 06/10/19 16:40> Date of Encounter: 06/10/19 Time of Encounter: 03:20 - Assessment and Plan (1) Goals of care, counseling/discussion Current Visit: Yes Status: Acute Assessment and plan: Discussed patient's goals of care. Discussed patients understanding of the current situation as per HPI. Patient has knowledge of his diagnosis. He currently is feeling fearful of his diagnosis. His goals are wanting to return home, and he does not want to go to a long-term or a rehab facility. He says that he has friends and neighbors who can assist him at home, as well as a planned home health aide through [facility] [employer]. While he is currently his own decision maker, his sister Connie is his POA. At this time patient reports wanting to have chest compressions, but has a fear of intubation. Will continue to keep patient full code at this time. He states that he would want his sister to decide in the moment as to what should be done. Will plan to have a family discussion tomorrow with patient and his sister to further discuss goals of care. (2) Constipation Current Visit: Yes Status: Acute Assessment and plan: Currently receiving Senna Plus Qualifiers: Constipation type: other constipation type Qualified Code(s): K59.09 - Other constipation (3) Nausea & vomiting Current Visit: Yes Status: Acute Assessment and plan: reports improvement on current medication management Qualifiers: Qualified Code(s): R11.2 - Nausea with vomiting, unspecified (4) Pancreatic cancer Current Visit: Yes Status: Chronic Qualifiers: Pancreatic malignancy location: body of pancreas Qualified Code(s): C25.1 - Malignant neoplasm of body of pancreas Palliative-CN HPI - Data of Consult Requesting Physician: Doreen So MD Primary Care Provider: PCP NONE - Consult Narrative Palliative Care/Comfort Measures: Palliative care Reason for consult: Goals of Care History of present illness: Mr. Estrada is a 78 year old male presenting for nausea and vomiting with a recent diagnosis of pancreatic cancer diagnosed on 05/20/2019 with metastasis to liver and lung. Patient states that since being in the hosptial medications are helping his symptoms He says that his nausea is "in-between" and that he is nto hungry, but he has been able to keep down liquids. He does report 5/10 pain over his whole abdomen and say that nothing helps the pain but nothing makes it worse. He says he is not passing gas and has not em a bowel movement for 3-4 days. He says he usually has a bowel movement every other day. Patient is aware of his diagnosis of pancreatic cancer causing ascites. He says that he thinks his oncologist wants to do chemo, and he em an appointment on July 03 with an [facility] oncologist. He says that he is fearful about his diagnosis He says that his goals are to be able to maintain his independence, and that he wants to be able to continue to live at home. He is currently living at home, and while he has not yet had home health services, he has it set up through [facility] for when he returns home. He says that his sister is his POA, but that at the moment he is still able to make medical decisions for himself. When attempting to discuss code status the patient states that he wants his sister to decide what to do in the moment. He says that his sister should be visiting tomorrow, and he is willing to have a family meeting then. CC: Doreen So MD - Time Spent with Patient Time: Total time spent is greater than 50% in coordination of care (as documented) at patient's floor/unit and/or counseling patient: Time with patient: 30 minutes Past Med Surg Social Fam HX - Past Medical History Medical history: arthritis, cancer, coronary artery disease, GERD, hyperlipidemia Additional medical history: pancreatic cancer. recent paracentesis Psychiatric history: no psych history - Past Surgical History Surgical History: herniorrhaphy Additional surgical history: B/L inguinal hernia repairs - Social History Smoking Status: Never smoker Alcohol use: none Drug use: none Medications and Allergies Haloperidol 0.5 mg PO Q6H PRN 06/09/19 [History] Morphine Sulfate Immed Rel [Morphine Sulfate] 15 mg PO Q2H PRN 06/09/19 [History] Sennosides [Senna] 8.6 mg PO BID 06/09/19 [History] Atorvastatin Calcium [Lipitor] 20 mg PO DAILY 06/10/19 [History] Pantoprazole Sodium [Protonix] 40 mg PO DAILY 06/10/19 [History] Allergy/AdvReac Type Severity Reaction Status Date / Time cephalexin Allergy Hives Verified 06/10/19 10:25 clobetasol Allergy Hives Verified 06/10/19 10:25 prednisone Allergy Hives Verified 06/10/19 10:25 - Constitutional Constitutional ROS PAL: decreased appetite - EENT Eyes: as per HPI - Cardiovascular Cardiovascular ROS: no chest pain - Respiratory Respiratory: no cough - Gastrointestinal Gastrointestinal: abdominal pain, change in bowel habits, constipation, nausea - Genitourinary Genitourinary ROS male: as per HPI - Musculoskeletal Musculoskeletal ROS IM: as per HPI - Neurological Neurological ROS: as per HPI Palliative Care-Exam - Constitutional Vitals: Temp Pulse Resp BP Pulse Ox 98.2 F 105 17 105/69 94 06/10/19 10:59 06/10/19 10:59 06/10/19 10:59 06/10/19 10:59 06/10/19 10:59 General appearance: Present: thin Exam: Patient is thin with a distended abdomen - Head Head Exam: Present: atraumatic, normocephalic - Eye Eye exam: Present: normal appearance - ENT ENT exam: Present: mucous membranes moist - Neck Neck exam: Present: full ROM - Respiratory Respiratory exam: Present: CTAB. Absent: respiratory distress - Cardiovascular Cardiovascular exam: Present: RRR, +S1, +S2. Absent: +S3, +S4 - GI/Abdominal Exam GI/Abdominal exam: Present: diminished bowel sounds, distended, firm, tenderness - Expanded GI/Abdominal Exam GI/Abdominal exam: Present: ascites - Rectal Rectal Exam: Present: deferred - Extremities Exam Extremities exam: Present: pedal edema Additional comments: +1 pitting edema BL lower extremity - Neurological Exam Neurological exam: Present: alert, oriented X3 - Psychiatric Psychiatric exam: Present: normal affect, normal mood Internal Medicine - CN: Reslt - Labs CBC & Chem 7: 06/10/19 04:49 06/10/19 08:25 Labs: Short CBC 06/10/19 Range/Units 04:49 WBC 4.3 (4.3-11.1) K/mcL Hgb 11.9 L (12.9-16.9) g/dL Hct 36.6 L (37.5-50.1) % Plt Count 153 (140-400) K/mcL Neutrophils # 3.3 (1.6-8.9) K/mcL BMP 06/10/19 08:25 Sodium 132 L Potassium 4.7 Chloride 99 Carbon Dioxide 22 L BUN 25 H Creatinine 0.59 L Glucose 98 Calcium 8.2 L Liver Function 06/10/19 Range/Units 08:25 Total Bilirubin 1.0 (0.3-1.0) mg/dL AST 35 (13-39) Units/L ALT 24 (7-52) Units/L Alkaline Phosphatase 270 H (34-104) Units/L Albumin 2.7 L (3.5-5.7) g/dL - ABG Interpretation ABG results: PT/INR, D-dimer PT 15.7 Seconds (9.4-12.1) H 06/10/19 04:49 Consult Discharge Plan - Plan Referrals: NONE,PCP [Primary Care Provider] - Palliative Quality Palliative Quality: Screen for Code Status: Yes, Screen for Goals of Care: Yes, Screen for Pain: Yes, If Pain Regimen Started, Initiate Bowel Regimen: NA, Screen for Nausea/Vomitting: Yes Code Status: 06/09/19 18:44 Resuscitation Status: Active [RES] Routine Comment: Resuscitation Status: Full Code <Elly Oliver - Last Filed: 06/10/19 17:03> Date of Encounter: 06/10/19 Palliative-CN HPI - Data of Consult Requesting Physician: Doreen So MD Primary Care Provider: PCP NONE - Consult Narrative History of present illness: Mr. Estrada is a 78 year old male CC: Doreen So MD - Time Spent with Patient Time: Total time spent is greater than 50% in coordination of care (as documented) at patient's floor/unit and/or counseling patient: Palliative Care-Exam - Constitutional Vitals: Temp Pulse Resp BP Pulse Ox 98.2 F 105 17 105/69 94 06/10/19 10:59 06/10/19 10:59 06/10/19 10:59 06/10/19 10:59 06/10/19 10:59 Internal Medicine - CN: Reslt - Labs CBC & Chem 7: 06/10/19 04:49 06/10/19 08:25 Labs: Short CBC 06/10/19 Range/Units 04:49 WBC 4.3 (4.3-11.1) K/mcL Hgb 11.9 L (12.9-16.9) g/dL Hct 36.6 L (37.5-50.1) % Plt Count 153 (140-400) K/mcL Neutrophils # 3.3 (1.6-8.9) K/mcL BMP 06/10/19 08:25 Sodium 132 L Potassium 4.7 Chloride 99 Carbon Dioxide 22 L BUN 25 H Creatinine 0.59 L Glucose 98 Calcium 8.2 L Liver Function 06/10/19 Range/Units 08:25 Total Bilirubin 1.0 (0.3-1.0) mg/dL AST 35 (13-39) Units/L ALT 24 (7-52) Units/L Alkaline Phosphatase 270 H (34-104) Units/L Albumin 2.7 L (3.5-5.7) g/dL - ABG Interpretation ABG results: PT/INR, D-dimer PT 15.7 Seconds (9.4-12.1) H 06/10/19 04:49 - Attending Attestation I examined this patient and my medical decision-making was reviewed with the Resident Physician. I agree with the documented findings, disposition and treatment plan as described except to the extent set forth below. Pt with recently diagnosed pancreatic cancer, presented with nausea and vomiting. CT abdomen shows large mid body pancreatic mass as well as omental ca rabia and ascites. Surgery recommended palliative management. Palliative care consult for goal of care. Pt was mostly comfortable, states pain and nausea was mostly controlled. Incomplete goals of care discussion with pt as documented in resident's note, he appeared scared and unwilling to elaborate on most points, not realistic about the extent of his disease and prognosis, and deferring most decisions to his sister Connie. Plan to meet with pt and sister tomorrow at 10am for further GOC and advanced care planning. Palliative Quality Code Status: 06/09/19 18:44 Resuscitation Status: Active [RES] Routine Comment: Resuscitation Status: Full Code
[2019-06-11] MEDS: Piperacillin/Tazobactam 3.375 GM in 0.9 % Sodium Chloride Mini Bag 100 ML IVPB SCH ×4 (00:33→23:55)
[2019-06-11 06:14] LABS: Basophils % 0.2 %; Eosinophils # 0.1 K/mcL (0.0-0.6); Eosinophils % 1.5 %; Hematocrit 37.6 % (37.5-50.1); Hemoglobin 12.4 g/dL (12.9-16.9); Immature Granulocytes % 1.7 % (0-4); Lymphocytes # 0.3 K/mcL (0.6-4.6); Lymphocytes % 3.6 %; Mean Corpuscular Hemoglobin 30.6 pg (28.0-33.3); Mean Corpuscular Volume 92.8 fL (83.0-100.0); Mean Platelet Volume 10.3 fL (9.4-12.4); Monocytes # 1.1 K/mcL (0.0-1.3); Monocytes % 13.3 %; Neutrophils # 6.6 K/mcL (1.6-8.9); Platelet Count 174 K/mcL (140-400); Red Blood Count 4.05 M/mcL (4.19-5.50); Red Cell Distribution Width 13.2 % (11.5-14.5); Segmented Neutrophils % 79.7 %
[2019-06-11 06:15] LABS: INR 1.4; Prothrombin Time 15.4 Seconds (9.4-12.1)
[2019-06-11 06:18] LABS: White Blood Count 8.3 K/mcL (4.3-11.1)
[2019-06-11 06:35] LABS: Alanine Aminotransferase 24 Units/L (7-52); Albumin 2.6 g/dL (3.5-5.7); Albumin/Globulin Ratio 0.9 (1.1-2.2); Alkaline Phosphatase 313 Units/L (34-104); Aspartate Amino Transferase 39 Units/L (13-39); BUN/Creatinine Ratio 42 (6-26); Bilirubin,Total 0.8 mg/dL (0.3-1.0); Blood Urea Nitrogen 23 mg/dL (8-23); Calcium 7.9 mg/dL (8.6-10.3); Carbon Dioxide 22 mEq/L (23-29); Chloride 100 mEq/L (98-107); Globulin 2.8 g/dL (2.4-3.5); Glucose 111 mg/dL (70-105); Osmolality,Calculated 282 (280-300); Potassium 4.1 mEq/L (3.5-5.1); Sodium 134 mEq/L (136-145); Total Protein 5.4 g/dL (6.4-8.9); eGFR For African Americans > 60 (> 60); eGFR For Non-African Americans > 60 (> 60)
[2019-06-11 06:59] LABS: Platelet Estimate Normal (Normal)
[2019-06-11] MEDS: Sennosides/Docusate Sodium TABLET PO SCH ×2 (08:46→21:39)
--- NOTE | 2019-06-11 09:00 | Internal Med Progress Note ---
<Cristina Bob - Last Filed: 06/11/19 12:58> Hospitalist Progress Note - Encounter Date of Encounter: 06/11/19 Time of Encounter: 09:40 - Exam Vitals: Temp Pulse Resp BP Pulse Ox 97.7 F 114 18 123/83 93 06/11/19 11:58 06/11/19 11:58 06/11/19 11:58 06/11/19 11:58 06/11/19 11:58 - Assessment and Plan (1) Pneumonia Current Visit: Yes Status: Suspected (2) Malignant ascites Current Visit: Yes Status: Acute (3) Peritoneal carcinomatosis Current Visit: Yes Status: Acute (4) Abdominal pain Current Visit: Yes Status: Acute (5) Hyponatremia Current Visit: Yes Status: Acute (6) Tachycardia Current Visit: Yes Status: Chronic (7) Pancreatic cancer Current Visit: Yes Status: Chronic - Time Spent with Patient Total time spent is greater than 50% in coordination of care (as documented) at patient's floor/unit and/or counseling patient: Internal Medicine: Result - Labs CBC & Chem 7: 06/11/19 05:20 06/11/19 05:20 Labs: Short CBC 06/11/19 Range/Units 05:20 WBC 8.3 D (4.3-11.1) K/mcL Hgb 12.4 L (12.9-16.9) g/dL Hct 37.6 (37.5-50.1) % Plt Count 174 (140-400) K/mcL Neutrophils # 6.6 (1.6-8.9) K/mcL BMP 06/11/19 05:20 Sodium 134 L Potassium 4.1 Chloride 100 Carbon Dioxide 22 L BUN 23 Creatinine 0.55 L Glucose 111 H Calcium 7.9 L Liver Function 06/11/19 Range/Units 05:20 Total Bilirubin 0.8 (0.3-1.0) mg/dL AST 39 (13-39) Units/L ALT 24 (7-52) Units/L Alkaline Phosphatase 313 H (34-104) Units/L Albumin 2.6 L (3.5-5.7) g/dL - ABG Interpretation ABG results: PT/INR, D-dimer PT 15.4 Seconds (9.4-12.1) H 06/11/19 05:20 Consult Discharge Plan - Plan Referrals: NONE,PCP [Primary Care Provider] - - Attending Attestation I saw evaluated and examined this patient and reviewed objective data including labs and my medical decision-making was reviewed with the Resident Physician, Gustavo Antoine. I agree with the documented findings, disposition and treatment plan as described except to any changes set forth below. We independently had [id number] contact with the patient. Pneumonia: Most likely aspiration pneumonia. Continue Zosyn. Pancreatic cancer with malignant ascites and peritoneal carcinomatosis: Poor prognosis overall. Nonsurgical candidate. Recommended palliative care. Family meeting with palliative care today. We will await results of meeting. Given his malignant ascites, consideration should be given for placement of Pleurx catheter to drain has ascites fluid for palliative reasons. If patient is willing for this, we will consult interventional radiology. Pain control. Constipation: Patient on senna plus. We will add Dulcolax. If patient does not have bowel movements, consider edema. Sinus tachycardia: Improved. Continue to monitor heart rate. Could be related to pain. Patient is not significantly anemic. Hemoglobin 12.4. Not septic. We will check thyroid profile. Hyponatremia: Improved. Sodium 134. Anticoagulation with subcutaneous Lovenox <Angie Antoine I - Last Filed: 06/11/19 15:04> Hospitalist Progress Note - Encounter Date of Encounter: 06/11/19 - Subjective Interval History: Today patient is seen and examined at bedside , His abdominal pain and nausea improved . no bowel motion yet but did pass gas . His dyspnea improved . no chest pain , no fever or chills - Exam Vitals: Temp Pulse Resp BP Pulse Ox 98.0 F 109 17 112/74 94 06/11/19 06:34 06/11/19 06:34 06/11/19 06:34 06/11/19 06:34 06/11/19 06:34 Exam: General: no acute distress , A&AX3 HEENT: Atraumatic, Normocephaly, sclera unicteric Neck: supple , Full ROM , trachea midline Cardiac: RRR , S1+. S2+ Lungs: Normal Breath Sounds Bilaterally, No Wheeze, Rales, Rhonchi Abdomen: Distended , hard to palpate . Tender ,no organomegaly , -ve bowel sounds , dull to percussion Extremities: bilateral LL edema , Normal Pulses Skin : intact , Normal color Psychiatric : normal affect, normal mood Nuero : alert, normal gait, oriented X3 - Assessment and Plan (1) Generalized abdominal fullness Current Visit: Yes Status: Acute Assessment and Plan: Pancreatic cancer with malignant ascites and peritoneal carcinomatosis -pain controlled with oxycodone -no surgical intervention recommended -Palliative care consulted : prefer to return home at this point of time , but he said he will put hospice care in his consideration . code status changed to DNR-CC , there should be another meeting with the family tomorrow (2) Nausea & vomiting Current Visit: Yes Status: Acute Assessment and Plan: responding well to Zofran will continue zofran PRN (3) Pneumonia Current Visit: Yes Status: Suspected Assessment and Plan: mostly aspiration pneumonia CXR : Low lung volumes with bibasilar atelectasis. Superimposed pneumonia especially in the right lung base is considered His wbc is 8.3 06/09/2019 blood cultures are pending continue zosin day 3 (4) Hyponatremia Current Visit: Yes Status: Acute Assessment and Plan: improved . his Na level today is 134 (5) Hyperkalemia Current Visit: Yes Status: Acute Assessment and Plan: resolved (6) Constipation Current Visit: Yes Status: Acute Assessment and Plan: he is on senna plus 2 BID , no bowel movement yet , we added bisacodyl (7) Tachycardia Current Visit: Yes Status: Chronic Assessment and Plan: Improved. Could be related to pain. Patient is not significantly anemic. Hemoglobin 12.4. Not septic. We will check thyroid profile. Continue to monitor heart rate . we discontinued Lopressor PRN (8) Pancreatic cancer Current Visit: Yes Status: Chronic Assessment and Plan: diagnosed with metastatic pancreatic cancer. He presented with nausea and vomiting as well as segmental dilation of the small bowel. He did have a paracentesis at the [facility] that demonstrated metastatic pancreatic cancer and the ascites quickly reaccumulated. DVT Prophylaxis: SQ enoxaparin . - Time Spent with Patient Total time spent is greater than 50% in coordination of care (as documented) at patient's floor/unit and/or counseling patient: Internal Medicine: Result - Labs CBC & Chem 7: 06/11/19 05:20 06/11/19 05:20 Labs: Short CBC 06/11/19 Range/Units 05:20 WBC 8.3 D (4.3-11.1) K/mcL Hgb 12.4 L (12.9-16.9) g/dL Hct 37.6 (37.5-50.1) % Plt Count 174 (140-400) K/mcL Neutrophils # 6.6 (1.6-8.9) K/mcL BMP 06/10/19 06/11/19 08:25 05:20 Sodium 132 L 134 L Potassium 4.7 4.1 Chloride 99 100 Carbon Dioxide 22 L 22 L BUN 25 H 23 Creatinine 0.59 L 0.55 L Glucose 98 111 H Calcium 8.2 L 7.9 L Liver Function 06/10/19 06/11/19 Range/Units 08:25 05:20 Total Bilirubin 1.0 0.8 (0.3-1.0) mg/dL AST 35 39 (13-39) Units/L ALT 24 24 (7-52) Units/L Alkaline Phosphatase 270 H 313 H (34-104) Units/L Albumin 2.7 L 2.6 L (3.5-5.7) g/dL - ABG Interpretation ABG results: PT/INR, D-dimer PT 15.4 Seconds (9.4-12.1) H 06/11/19 05:20 <Cristina Bob - Last Filed: 06/11/19 12:58> (1) Pneumonia Qualifiers: Pneumonia type: aspiration pneumonia Aspiration pneumonia type: due to regurgitated food Laterality: right Lung location: lower lobe of lung Qualified Code(s): J69.0 - Pneumonitis due to inhalation of food and vomit (4) Abdominal pain Qualifiers: Abdominal location: generalized Qualified Code(s): R10.84 - Generalized abdominal pain (7) Pancreatic cancer Qualifiers: Pancreatic malignancy location: body of pancreas Qualified Code(s): C25.1 - Malignant neoplasm of body of pancreas <ElinaAngie I - Last Filed: 06/11/19 15:04> (2) Nausea & vomiting Qualifiers: Qualified Code(s): R11.14 - Bilious vomiting (3) Pneumonia Qualifiers: Qualified Code(s): J69.0 - Pneumonitis due to inhalation of food and vomit (6) Constipation Qualifiers: Qualified Code(s): K59.09 - Other constipation (8) Pancreatic cancer Qualifiers: Qualified Code(s): C25.1 - Malignant neoplasm of body of pancreas
--- NOTE | 2019-06-11 10:05 | Palliative Progress Note ---
<KishanSuriNehal B - Last Filed: 06/11/19 14:58> Date of Encounter: 06/11/19 Time of Encounter: 07:45 - Assessment and plan (1) Goals of care, counseling/discussion Current Visit: Yes Status: Acute Assessment and plan: Patient is agreeable to change his code status to DNR-CC. Patient signed DNR form. Had a goals of care discussion with the patient as well as with the patients sister by telephone. Discussed consideration of hospice care and the patients goals. The patient would prefer to be able to return home at this point in time. A determination on hospice care is being held at this time, and another family meeting is planned for tomorrow to allow time for patient and his sister to process the new information about hospice care and to determine the best course of action for the patient. Patient does report that he is willing to consider hospice care. Patient denies fear and depression and this point in time. He is very religiously driven in his views on life, however he does not want to speak with a staple cutter at this time. (2) Constipation Current Visit: Yes Status: Acute Assessment and plan: Patient receiving Senna Plus Reports having passing of gas Qualifiers: Constipation type: other constipation type Qualified Code(s): K59.09 - Other constipation (3) Nausea & vomiting Current Visit: Yes Status: Acute Assessment and plan: Pt has Zofran PRN for nausea Qualifiers: Vomiting type: bilious vomiting Qualified Code(s): R11.14 - Bilious vomiting (4) Pancreatic cancer Current Visit: Yes Status: Chronic Assessment and plan: Patient has been being seen by [facility]- Astrid Seaman He has a follow up appointment on July 03 Qualifiers: Pancreatic malignancy location: body of pancreas Qualified Code(s): C25.1 - Malignant neoplasm of body of pancreas (5) Abdominal pain Current Visit: Yes Status: Acute Assessment and plan: Change oxycodone to 10mg SL every 6 hours Continue oxycodone 5mg SL PRN for breakthrough pain Qualifiers: Abdominal location: generalized Qualified Code(s): R10.84 - Generalized abdominal pain (6) Malignant ascites Current Visit: Yes Status: Acute Assessment and plan: Recommend a pluerx catheter for management of quickly accumulating ascites. Discussed with IM attending. - Time Spent With Patient Total time spent is greater than 50% in coordination of care (as documented) at patient's floor/unit and/or counseling patient: Greater than 35 minutes - Subjective Interval history: Mr. Estrada is a 78 year old male presenting for nausea and vomiting with a recent diagnosis of pancreatic cancer diagnosed on 05/20/2019 with metastasis to liver and lung. He reports increasing abdominal pain today reporting that it is a 6-7/10. He does say that pain medications do help with his pain. He says that his nausea is "not so bad". He did have an episode of vomiting during the interview this morning, but states it was due to him having issues with his dentures. He says that he has been able to drink liquids only at this time. He denies having any bowel movements, but reports that he is passing gas at this time. One of his friends is at his bedside today. He continues to have abdominal pain throughout the day. Had a phone conversation with patient and his sister Connie, who is the patients POA. Discussed their understanding of the patients current condition. Also discussed the role of hospice care. Family is wanting time to make a decision. Patient was agreeable at this time for DNR-CC. - Constitutional Vitals: Abnormal lab results RBC 4.05 M/mcL (4.19-5.50) L 06/11/19 05:20 Hgb 12.4 g/dL (12.9-16.9) L 06/11/19 05:20 Hct 36.6 % (37.5-50.1) L 06/10/19 04:49 Band Neutrophils % 16.0 % (0-4) H 06/10/19 04:49 Lymphocytes # 0.3 K/mcL (0.6-4.6) L 06/11/19 05:20 PT 15.4 Seconds (9.4-12.1) H 06/11/19 05:20 Sodium 134 mEq/L (136-145) L 06/11/19 05:20 Potassium 5.4 mEq/L (3.5-5.1) H 06/09/19 13:24 Chloride 94 mEq/L (98-107) L 06/09/19 13:24 Carbon Dioxide 22 mEq/L (23-29) L 06/11/19 05:20 BUN 25 mg/dL (8-23) H 06/10/19 08:25 Creatinine 0.55 mg/dL (0.70-1.30) L 06/11/19 05:20 BUN/Creatinine Ratio 42 (6-26) H 06/11/19 05:20 Glucose 111 mg/dL (70-105) H 06/11/19 05:20 Calculated Osmolality 278 (280-300) L 06/10/19 08:25 Calcium 7.9 mg/dL (8.6-10.3) L 06/11/19 05:20 Total Bilirubin 1.4 mg/dL (0.3-1.0) H 06/09/19 13:24 AST 43 Units/L (13-39) H 06/09/19 13:24 Alkaline Phosphatase 313 Units/L (34-104) H 06/11/19 05:20 Serum Total Protein 5.4 g/dL (6.4-8.9) L 06/11/19 05:20 Albumin 2.6 g/dL (3.5-5.7) L 06/11/19 05:20 Albumin/Globulin Ratio 0.9 (1.1-2.2) L 06/11/19 05:20 Lipase < 3 Units/L (11-82) L 06/09/19 13:24 Procalcitonin 1.49 ng/mL (0.00-0.15) H 06/09/19 20:08 - Head Head exam: Present: atraumatic, normocephalic - Eye Eye exam: Present: normal appearance - Neck Neck exam: Present: full ROM - Respiratory Respiratory exam: Present: CTAB. Absent: rales, rhonchi, stridor - Cardiovascular Cardiovascular exam: Present: +S1, +S2, tachycardia - GI/Abdominal GI/Abdominal exam: Present: diminished bowel sounds, distended, firm - Expanded Abdominal Exam GI/Abdominal exam: Present: ascites - Extremities Exam Extremities exam: Present: pedal edema (+1 bl lower extremity pitting edema) - Neurological Exam Neurological exam: Present: alert, oriented X3 - Psychiatric Psychiatric exam: Present: normal affect, normal mood Palliative Quality Palliative Quality: Screen for Code Status: Yes, Screen for Goals of Care: Yes, Screen for Pain: Yes, If Pain Regimen Started, Initiate Bowel Regimen: NA, Screen for Nausea/Vomitting: Yes Code Status: 06/09/19 18:44 Resuscitation Status: Active [RES] Routine Comment: Resuscitation Status: Full Code - Labs CBC & Chem 7: 06/11/19 05:20 06/11/19 05:20 Labs: Laboratory Results - last 24 hr 06/11/19 06/11/19 06/11/19 05:20 05:20 05:20 WBC 8.3 D RBC 4.05 L Hgb 12.4 L Hct 37.6 MCV 92.8 MCH 30.6 MCHC 33.0 RDW 13.2 Plt Count 174 MPV 10.3 Immature Gran % 1.7 Seg Neutrophils % 79.7 Lymphocytes % 3.6 Monocytes % 13.3 Eosinophils % 1.5 Basophils % 0.2 Neutrophils # 6.6 Lymphocytes # 0.3 L Monocytes # 1.1 Eosinophils # 0.1 Basophils # 0.0 Platelet Estimate Normal PT 15.4 H INR 1.4 Sodium 134 L Potassium 4.1 Chloride 100 Carbon Dioxide 22 L BUN 23 Creatinine 0.55 L Est GFR ( Amer) > 60 Est GFR (Non-Af Amer) > 60 BUN/Creatinine Ratio 42 H Glucose 111 H Calculated Osmolality 282 Calcium 7.9 L Total Bilirubin 0.8 AST 39 ALT 24 Alkaline Phosphatase 313 H Serum Total Protein 5.4 L Albumin 2.6 L Globulin 2.8 Albumin/Globulin Ratio 0.9 L - ABG Interpretation ABG results: PT/INR, D-dimer PT 15.4 Seconds (9.4-12.1) H 06/11/19 05:20 Consult Discharge Plan - Plan Referrals: NONE,PCP [Primary Care Provider] - <Elly Oliver - Last Filed: 06/11/19 16:04> Date of Encounter: 06/11/19 - Time Spent With Patient Total time spent is greater than 50% in coordination of care (as documented) at patient's floor/unit and/or counseling patient: >70 minutes - Constitutional Vitals: Abnormal lab results RBC 4.05 M/mcL (4.19-5.50) L 06/11/19 05:20 Hgb 12.4 g/dL (12.9-16.9) L 06/11/19 05:20 Hct 36.6 % (37.5-50.1) L 06/10/19 04:49 Band Neutrophils % 16.0 % (0-4) H 06/10/19 04:49 Lymphocytes # 0.3 K/mcL (0.6-4.6) L 06/11/19 05:20 PT 15.4 Seconds (9.4-12.1) H 06/11/19 05:20 Sodium 134 mEq/L (136-145) L 06/11/19 05:20 Potassium 5.4 mEq/L (3.5-5.1) H 06/09/19 13:24 Chloride 94 mEq/L (98-107) L 06/09/19 13:24 Carbon Dioxide 22 mEq/L (23-29) L 06/11/19 05:20 BUN 25 mg/dL (8-23) H 06/10/19 08:25 Creatinine 0.55 mg/dL (0.70-1.30) L 06/11/19 05:20 BUN/Creatinine Ratio 42 (6-26) H 06/11/19 05:20 Glucose 111 mg/dL (70-105) H 06/11/19 05:20 Calculated Osmolality 278 (280-300) L 06/10/19 08:25 Calcium 7.9 mg/dL (8.6-10.3) L 06/11/19 05:20 Total Bilirubin 1.4 mg/dL (0.3-1.0) H 06/09/19 13:24 AST 43 Units/L (13-39) H 06/09/19 13:24 Alkaline Phosphatase 313 Units/L (34-104) H 06/11/19 05:20 Serum Total Protein 5.4 g/dL (6.4-8.9) L 06/11/19 05:20 Albumin 2.6 g/dL (3.5-5.7) L 06/11/19 05:20 Albumin/Globulin Ratio 0.9 (1.1-2.2) L 06/11/19 05:20 Lipase < 3 Units/L (11-82) L 06/09/19 13:24 Procalcitonin 1.49 ng/mL (0.00-0.15) H 06/09/19 20:08 - Attending Attestation I examined this patient and my medical decision-making was reviewed with the Resident Physician Dr. Holley. I agree with the documented findings, disposition and treatment plan as described except to the extent set forth below. 1000: When first seen today pt was having episodes of vomiting. Zofran given by nurse. Abdomen appears more tense and tender than yesterday. Patient otherwise not complaining of pain. Sister was not present at the bedside. Subsequently sister was reached and stated to be in her way in. [id number]: Pt was not feeling nauseous at this time, complaining of left flank pain. Sister Connie had left. Called and reached Connie on speaker phone. Discussed with Stas and Connie current medical condition, trajectory of illness, treatment options and overall poor prognosis. Stas has 2 sisters and a grand-daughter. Sister Connie is his MPOA. They are both aware that pt is in terminal phase of pancreatic cancer, and asking for options. Patient so far was living alone, with no medicare in place. Talked about the philosophy and services offered by hospice as well as possible settings. Explained that in a home setting hospice would not cover 24hrs care, also pt will likely need to private pay if d/c to SNF with hospice care. Patient ideally would like to return home, but does understand that he will soon need a higher level of care. Connie would like more information. Plan: - Abdomina pain: by the end of the meeting, pt appeared in pain crisis, holding his abdomen. He was given 1 dose of Oxycodone, oxycodone 10 mg changed to scheduled q6hrs with 5mg prn. - Family Meeting scheduled with Connie tomorrow at 10am. account liaison nurse Jyoti was made aware to meet with pt and Connie. - Discussed with Dr. Bob, pt will need a Pleurx catheter for comfort. IR consult placed and called, pt will be scheduled for tomorrow. - ACP: Discussed code status, pt decided for DNRCC. Form filled and added to pt's chart. I spent 20 minutes total time with patient, family member(s) and/or surrogate discussing advance care planning to include explanation/discussion of advanced directives. Please note this time was additional time spent with patient, fami ly and/or surrogate not involving active management of patient's conditions or treatments. 1500: notified that pt remains in increasing pain, despite oral Oxycodone. Pt was seen and was sitting on the edge of the bed, asking for medication. Dilaudid 4mg IV once given. Will change prn doses to Dilaudid IV img q4hrs. Palliative Quality Code Status: 06/09/19 18:44 Resuscitation Status: Active [RES] Routine Comment: Resuscitation Status: Full Code 06/11/19 14:01 DNR [Resuscitation Status: Active] [RES] Routine Comment: Resuscitation Status: DNR-Comfort Care - Labs CBC & Chem 7: 06/11/19 05:20 06/11/19 05:20 Labs: Laboratory Results - last 24 hr 06/11/19 06/11/19 06/11/19 05:20 05:20 05:20 WBC 8.3 D RBC 4.05 L Hgb 12.4 L Hct 37.6 MCV 92.8 MCH 30.6 MCHC 33.0 RDW 13.2 Plt Count 174 MPV 10.3 Immature Gran % 1.7 Seg Neutrophils % 79.7 Lymphocytes % 3.6 Monocytes % 13.3 Eosinophils % 1.5 Basophils % 0.2 Neutrophils # 6.6 Lymphocytes # 0.3 L Monocytes # 1.1 Eosinophils # 0.1 Basophils # 0.0 Platelet Estimate Normal PT 15.4 H INR 1.4 Sodium 134 L Potassium 4.1 Chloride 100 Carbon Dioxide 22 L BUN 23 Creatinine 0.55 L Est GFR ( Amer) > 60 Est GFR (Non-Af Amer) > 60 BUN/Creatinine Ratio 42 H Glucose 111 H Calculated Osmolality 282 Calcium 7.9 L Total Bilirubin 0.8 AST 39 ALT 24 Alkaline Phosphatase 313 H Serum Total Protein 5.4 L Albumin 2.6 L Globulin 2.8 Albumin/Globulin Ratio 0.9 L TSH 1.404 Free T4 1.02 - ABG Interpretation ABG results: PT/INR, D-dimer PT 15.4 Seconds (9.4-12.1) H 06/11/19 05:20
[2019-06-11] MEDS: Ondansetron 4 MG/2 ML VIAL IVP PRN ×3 (10:23→20:20)
--- NOTE | 2019-06-11 11:15 | Electrocardiograph Report ---
[place] [address] Test Date: 2019-06-10 Pat Name: tSas Estrada Department: 115 Room: 3A42 Gender: M Room Service Supervisor: : [id number] Requested By: Angie Antoine Order Number: [id number] Reading MD: Abran Johnson Measurements Intervals Geraldine Rate: 111 P: 34 RI: 125 QRS: -7 QRSD: 75 T: 30 QT: 314 QTc: 380 Interpretive Statements SINUS TACHYCARDIA LOW QRS VOLTAGE IN PRECORDIAL LEADS ABNORMAL RHYTHM ECG Electronically Signed On 06-11-2019 11:13:29 EDT by Abran Johnson
[2019-06-11 13:57] LABS: Thyroid Stimulating Hormone 1.404 mcIU/mL (0.340-5.600)
[2019-06-11] MEDS: *HR* Enoxaparin 40 MG/0.4 ML SYRINGE SQ SCH (14:06)
[2019-06-11] MEDS ORDERED: *HR* HYDROmorphone 2 MG/ML SYRINGE IVP ONE (15:28)
[2019-06-11] MEDS: *HR* HYDROmorphone 2 MG/ML SYRINGE IVP PRN ×2 (16:12→20:20)
[2019-06-11] MEDS: Metoprolol XL (24 HR) Succ 25 MG TAB.ER.24H PO SCH (17:05)
[2019-06-12 05:57] LABS: Basophils # 0.1 K/mcL (0.0-0.2); Basophils % 0.6 %; Eosinophils # 0.1 K/mcL (0.0-0.6); Eosinophils % 0.4 %; Hematocrit 39.5 % (37.5-50.1); Hemoglobin 12.8 g/dL (12.9-16.9); Immature Granulocytes % 2.3 % (0-4); Lymphocytes # 0.4 K/mcL (0.6-4.6); Lymphocytes % 2.7 %; Mean Corpuscular HGB Conc 32.4 g/dL (31.6-35.5); Mean Corpuscular Hemoglobin 30.2 pg (28.0-33.3); Mean Corpuscular Volume 93.2 fL (83.0-100.0); Mean Platelet Volume 10.2 fL (9.4-12.4); Monocytes # 1.5 K/mcL (0.0-1.3); Platelet Count 184 K/mcL (140-400); Red Blood Count 4.24 M/mcL (4.19-5.50); Red Cell Distribution Width 13.6 % (11.5-14.5)
[2019-06-12 06:02] LABS: Neutrophils # 13.8 K/mcL (1.6-8.9); White Blood Count 16.2 K/mcL (4.3-11.1)
[2019-06-12] MEDS: *HR* Enoxaparin 40 MG/0.4 ML SYRINGE SQ SCH (06:06)
[2019-06-12 06:18] LABS: Alanine Aminotransferase 24 Units/L (7-52); Albumin 2.6 g/dL (3.5-5.7); Albumin/Globulin Ratio 0.9 (1.1-2.2); Alkaline Phosphatase 323 Units/L (34-104); Aspartate Amino Transferase 34 Units/L (13-39); BUN/Creatinine Ratio 42 (6-26); Bilirubin,Total 0.8 mg/dL (0.3-1.0); Blood Urea Nitrogen 27 mg/dL (8-23); Carbon Dioxide 22 mEq/L (23-29); Chloride 99 mEq/L (98-107); Glucose 115 mg/dL (70-105); Osmolality,Calculated 284 (280-300); Potassium 4.4 mEq/L (3.5-5.1); Sodium 134 mEq/L (136-145); Total Protein 5.6 g/dL (6.4-8.9); eGFR For African Americans > 60 (> 60); eGFR For Non-African Americans > 60 (> 60)
[2019-06-12] MEDS: Metoprolol XL (24 HR) Succ 25 MG TAB.ER.24H PO SCH (09:33)
[2019-06-12] MEDS: Sennosides/Docusate Sodium TABLET PO SCH ×2 (09:33→20:28)
[2019-06-12] MEDS: Piperacillin/Tazobactam 3.375 GM in 0.9 % Sodium Chloride Mini Bag 100 ML IVPB SCH ×3 (09:33→23:43)
--- NOTE | 2019-06-12 10:43 | Palliative Progress Note ---
Date of Encounter: 06/12/19 Time of Encounter: 10:00 - Assessment and plan (1) Abdominal pain Current Visit: Yes Status: Acute Assessment and plan: scheduled pain medication appears effective. Pt received 2 prn doses of hydromorphone yesterday. He is stoic and not likely to ask for prn doses unless the pain is unbearable. continue oxycodone to 10mg SL every 6 hours and hydromorphone 1mg q2hrs prn. Qualifiers: Abdominal location: generalized Qualified Code(s): R10.84 - Generalized abdominal pain (2) Nausea & vomiting Current Visit: Yes Status: Acute Assessment and plan: continue zofran prn Qualifiers: Vomiting type: bilious vomiting Qualified Code(s): R11.14 - Bilious vomiting (3) Goals of care, counseling/discussion Current Visit: Yes Status: Acute Assessment and plan: 20 minutes meeting this morning with patient and sister Connie. Connie confirmed that she is the MPOA and the forms were given to nurse to put in the chart. Reviewed current medical condition and plan. Connie have reached out to the rest of the family and the pt's gnosticist family. She stated they are all working on a system to ensure that pt will have someone around with him at all times. Patient continues to be agreeable with hospice care, as long as he can return home. Family would like pt to be evaluated for mobility, will request PT after IR procedure. Pain medication to be adjusted after procedure, and evaluate mobility and feed ing. Plan to discharge tomorrow if stable per primary hospitalist. [facility] referral called. (4) Malignant ascites Current Visit: Yes Status: Acute Assessment and plan: scheduled for pleurx cath by IR today for management of quickly accumulating ascites (5) Pancreatic cancer Current Visit: Yes Status: Chronic Qualifiers: Pancreatic malignancy location: body of pancreas Qualified Code(s): C25.1 - Malignant neoplasm of body of pancreas (6) Palliative care encounter Current Visit: Yes Status: Acute - Time Spent With Patient Total time spent is greater than 50% in coordination of care (as documented) at patient's floor/unit and/or counseling patient: Greater than 35 minutes - Subjective Interval history: Patiet was lying in bed, abdominal pain is better and he denies episodes of vomiting today. He is still feeling tense and bloated, and looking forward to the scheduled paracentesis. Pain medication needs increased from yesterday. - Constitutional Vitals: Abnormal lab results WBC 16.2 K/mcL (4.3-11.1) H D 06/12/19 05:22 RBC 4.05 M/mcL (4.19-5.50) L 06/11/19 05:20 Hgb 12.8 g/dL (12.9-16.9) L 06/12/19 05:22 Hct 36.6 % (37.5-50.1) L 06/10/19 04:49 Band Neutrophils % 16.0 % (0-4) H 06/10/19 04:49 Neutrophils # 13.8 K/mcL (1.6-8.9) H 06/12/19 05:22 Lymphocytes # 0.4 K/mcL (0.6-4.6) L 06/12/19 05:22 Monocytes # 1.5 K/mcL (0.0-1.3) H 06/12/19 05:22 PT 15.4 Seconds (9.4-12.1) H 06/11/19 05:20 Sodium 134 mEq/L (136-145) L 06/12/19 05:22 Potassium 5.4 mEq/L (3.5-5.1) H 06/09/19 13:24 Chloride 94 mEq/L (98-107) L 06/09/19 13:24 Carbon Dioxide 22 mEq/L (23-29) L 06/12/19 05:22 BUN 27 mg/dL (8-23) H 06/12/19 05:22 Creatinine 0.64 mg/dL (0.70-1.30) L 06/12/19 05:22 BUN/Creatinine Ratio 42 (6-26) H 06/12/19 05:22 Glucose 115 mg/dL (70-105) H 06/12/19 05:22 Calculated Osmolality 278 (280-300) L 06/10/19 08:25 Calcium 8.0 mg/dL (8.6-10.3) L 06/12/19 05:22 Total Bilirubin 1.4 mg/dL (0.3-1.0) H 06/09/19 13:24 AST 43 Units/L (13-39) H 06/09/19 13:24 Alkaline Phosphatase 323 Units/L (34-104) H 06/12/19 05:22 Serum Total Protein 5.6 g/dL (6.4-8.9) L 06/12/19 05:22 Albumin 2.6 g/dL (3.5-5.7) L 06/12/19 05:22 Albumin/Globulin Ratio 0.9 (1.1-2.2) L 06/12/19 05:22 Lipase < 3 Units/L (11-82) L 06/09/19 13:24 Procalcitonin 1.49 ng/mL (0.00-0.15) H 06/09/19 20:08 Exam: Vitals reviewed General appearance: alert, oriented x3, appears uncomfortable Eyes: nonicteric, EOMI Neck: supple, no lymphadenopathy, no JVD Chest: bilateral: normal breath sounds, normal effort Cardiovascular: regular rate and rhythm, no murmur, rub, gallop Gastrointestinal: tense and distended, tender to touch, ascites present. Extremities: pedal edema, no clubbing, normal capillary refill Neurologic: AAOxa, non-focal exam Psych: mood appropriate, affect normal Palliative Quality Palliative Quality: Screen for Code Status: Yes, Screen for Goals of Care: Yes, Screen for Pain: Yes, If Pain Regimen Started, Initiate Bowel Regimen: NA, Scre en for Nausea/Vomitting: Yes Code Status: 06/09/19 18:44 Resuscitation Status: Active [RES] Routine Comment: Resuscitation Status: Full Code 06/11/19 14:01 DNR [Resuscitation Status: Active] [RES] Routine Comment: Resuscitation Status: DNR-Comfort Care - Labs CBC & Chem 7: 06/12/19 05:22 06/12/19 05:22 Labs: Laboratory Results - last 24 hr 06/11/19 06/12/19 06/12/19 05:20 05:22 05:22 WBC 16.2 H D RBC 4.24 Hgb 12.8 L Hct 39.5 MCV 93.2 MCH 30.2 MCHC 32.4 RDW 13.6 Plt Count 184 MPV 10.2 Immature Gran % 2.3 Seg Neutrophils % 85.0 Lymphocytes % 2.7 Monocytes % 9.0 Eosinophils % 0.4 Basophils % 0.6 Neutrophils # 13.8 H Lymphocytes # 0.4 L Monocytes # 1.5 H Eosinophils # 0.1 Basophils # 0.1 Sodium 134 L 134 L Potassium 4.1 4.4 Chloride 100 99 Carbon Dioxide 22 L 22 L BUN 23 27 H Creatinine 0.55 L 0.64 L Est GFR ( Amer) > 60 > 60 Est GFR (Non-Af Amer) > 60 > 60 BUN/Creatinine Ratio 42 H 42 H Glucose 111 H 115 H Calculated Osmolality 282 284 Calcium 7.9 L 8.0 L Total Bilirubin 0.8 0.8 AST 39 34 ALT 24 24 Alkaline Phosphatase 313 H 323 H Serum Total Protein 5.4 L 5.6 L Albumin 2.6 L 2.6 L Globulin 2.8 3.0 Albumin/Globulin Ratio 0.9 L 0.9 L TSH 1.404 Free T4 1.02 - ABG Interpretation ABG results: PT/INR, D-dimer PT 15.4 Seconds (9.4-12.1) H 06/11/19 05:20 Consult Discharge Plan - Plan Referrals: Jeovany Calero Jr, MD [Non-Partnered Physician] -
--- NOTE | 2019-06-12 16:27 | Internal Med Progress Note ---
<Nohemy Hammer E - Last Filed: 06/12/19 16:25> Hospitalist Progress Note - Encounter Date of Encounter: 06/12/19 Time of Encounter: 09:45 - Subjective Interval History: Mr. Estrada is a 78-year-old male initially presented due to crease work of breathing Patient was seen and examined at side today and was in no acute distress at that time. He stated that he was in no pain and was just wondering about how the Pleurx catheter worked. Patient denied any chest pain, shortness of breath, abdominal pain, nausea, vomiting, diarrhea. - Exam Vitals: Temp Pulse Resp BP Pulse Ox 97.4 F L 101 15 124/85 92 06/12/19 15:12 06/12/19 15:12 06/12/19 15:12 06/12/19 15:12 06/12/19 15:12 Exam: General: AAO 3, no acute distress, answers questions appropriately Head: normocephalic, atraumatic Eyes: LIANA, no icterus Cardio: RRR, no murmurs, rubs, or gallops Respiratory: CTAB, no wheezing, rhonchi, rales Abd: Hyperactive bowel sounds, distended abdomen Extremities: nonpitting edema at the ankles, pulses equal bilaterally, warm Skin: warm, dry, intact - Assessment and Plan (1) Pancreatic cancer Current Visit: Yes Status: Chronic Assessment and Plan: Diagnosed with metastatic pancreatic cancer Present with nausea vomiting and segmental dilation of the small bowel Paracentesis at 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 Concern for superimposed pneumonia especially at the right lung base White blood cell count 16.2 today Blood cultures are pending Continue Zosyn (8) Tachycardia Current Visit: Yes Status: Chronic Assessment and Plan: Has improved Possibly related to pain Continue to monitor heart rate DVT Prophylaxis: Subcutaneous heparin . - Time Spent with Patient Total time spent is greater than 50% in coordination of care (as documented) at patient's floor/unit and/or counseling patient: Internal Medicine: Result - Labs CBC & Chem 7: 06/12/19 05:22 06/12/19 05:22 Labs: Short CBC 06/12/19 Range/Units 05:22 WBC 16.2 H D (4.3-11.1) K/mcL Hgb 12.8 L (12.9-16.9) g/dL Hct 39.5 (37.5-50.1) % Plt Count 184 (140-400) K/mcL Neutrophils # 13.8 H (1.6-8.9) K/mcL BMP 06/12/19 05:22 Sodium 134 L Potassium 4.4 Chloride 99 Carbon Dioxide 22 L BUN 27 H Creatinine 0.64 L Glucose 115 H Calcium 8.0 L Liver Function 06/12/19 Range/Units 05:22 Total Bilirubin 0.8 (0.3-1.0) mg/dL AST 34 (13-39) Units/L ALT 24 (7-52) Units/L Alkaline Phosphatase 323 H (34-104) Units/L Albumin 2.6 L (3.5-5.7) g/dL - ABG Interpretation ABG results: PT/INR, D-dimer PT 15.4 Seconds (9.4-12.1) H 06/11/19 05:20 Consult Discharge Plan - Plan Referrals: Jeovany Calero Jr, MD [Non-Partnered Physician] - <Cristina Bob - Last Filed: 06/12/19 17:25> Hospitalist Progress Note - Encounter Date of Encounter: 06/12/19 Time of Encounter: 09:40 - Exam Vitals: Temp Pulse Resp BP Pulse Ox 97.4 F L 101 15 124/85 92 06/12/19 15:12 06/12/19 15:12 06/12/19 15:12 06/12/19 15:12 06/12/19 15:12 - Assessment and Plan (1) Pneumonia Current Visit: Yes Status: Suspected (2) Malignant ascites Current Visit: Yes Status: Acute (3) Peritoneal carcinomatosis Current Visit: Yes Status: Acute (4) Abdominal pain Current Visit: Yes Status: Acute (5) Hyponatremia Current Visit: Yes Status: Acute (6) Tachycardia Current Visit: Yes Status: Chronic (7) Pancreatic cancer Current Visit: Yes Status: Chronic - Time Spent with Patient Total time spent is greater than 50% in coordination of care (as documented) at patient's floor/unit and/or counseling patient: Internal Medicine: Result - Labs CBC & Chem 7: 06/12/19 05:22 06/12/19 05:22 Labs: Short CBC 06/12/19 Range/Units 05:22 WBC 16.2 H D (4.3-11.1) K/mcL Hgb 12.8 L (12.9-16.9) g/dL Hct 39.5 (37.5-50.1) % Plt Count 184 (140-400) K/mcL Neutrophils # 13.8 H (1.6-8.9) K/mcL BMP 06/12/19 05:22 Sodium 134 L Potassium 4.4 Chloride 99 Carbon Dioxide 22 L BUN 27 H Creatinine 0.64 L Glucose 115 H Calcium 8.0 L Liver Function 06/12/19 Range/Units 05:22 Total Bilirubin 0.8 (0.3-1.0) mg/dL AST 34 (13-39) Units/L ALT 24 (7-52) Units/L Alkaline Phosphatase 323 H (34-104) Units/L Albumin 2.6 L (3.5-5.7) g/dL - ABG Interpretation ABG results: PT/INR, D-dimer PT 15.4 Seconds (9.4-12.1) H 06/11/19 05:20 - Attending Attestation I saw evaluated and examined this patient and reviewed objective data including labs and my medical decision-making was reviewed with the Resident Physician, Nohemy Hammer. I agree with the documented findings, disposition and treatment plan as described except to any changes set forth below. We independently had [id number] contact with the patient. Patient's pain is better controlled today. He was supposed to undergo Pleurx catheter placement for malignant ascites. However given that he received Lovenox this morning procedure has been rescheduled for tomorrow. Pneumonia: Treating patient for aspiration pneumonia. Continue Zosyn. Will transition to Augmentin tomorrow provided WBC count improves. Patient has leukocytosis with worsening WBC count today. No fevers or chills. Could be reactive. Pancreatic cancer with malignant ascites and peritoneal carcinomatosis: Poor prognosis overall. Nonsurgical candidate. Palliative care has evaluated patient. Patient transition to DNR comfort care. Most likely will be discharg ed home with hospice once arrangements are made. Constipation: Improved.. Sinus tachycardia: Improved. Continue low-dose beta jyotsna. Hyponatremia: Stable. Anticoagulation with subcutaneous Lovenox <Nohemy Hammer - Last Filed: 06/12/19 16:25> (1) Pancreatic cancer Qualifiers: Pancreatic malignancy location: body of pancreas Qualified Code(s): C25.1 - Malignant neoplasm of body of pancreas (4) Constipation Qualifiers: Constipation type: other constipation type Qualified Code(s): K59.09 - Other constipation (6) Nausea & vomiting Qualifiers: Vomiting type: bilious vomiting Qualified Code(s): R11.14 - Bilious vomiting (7) Pneumonia Qualifiers: Pneumonia type: aspiration pneumonia Aspiration pneumonia type: due to regurgitated food Laterality: right Lung location: lower lobe of lung Qualified Code(s): J69.0 - Pneumonitis due to inhalation of food and vomit <Cristina Bob - Last Filed: 06/12/19 17:25> (1) Pneumonia Qualifiers: Pneumonia type: aspiration pneumonia Aspiration pneumonia type: due to regurgitated food Laterality: right Lung location: lower lobe of lung Qualified Code(s): J69.0 - Pneumonitis due to inhalation of food and vomit (4) Abdominal pain Qualifiers: Abdominal location: generalized Qualified Code(s): R10.84 - Generalized abdominal pain (7) Pancreatic cancer Qualifiers: Pancreatic malignancy location: body of pancreas Qualified Code(s): C25.1 - Malignant neoplasm of body of pancreas
[2019-06-13 05:48] LABS: Basophils # 0.1 K/mcL (0.0-0.2); Basophils % 0.6 %; Eosinophils # 0.1 K/mcL (0.0-0.6); Eosinophils % 0.4 %; Hematocrit 40.8 % (37.5-50.1); Hemoglobin 13.3 g/dL (12.9-16.9); Immature Granulocytes % 2.8 % (0-4); Lymphocytes # 0.6 K/mcL (0.6-4.6); Lymphocytes % 3.3 %; Mean Corpuscular HGB Conc 32.6 g/dL (31.6-35.5); Mean Corpuscular Hemoglobin 30.7 pg (28.0-33.3); Mean Corpuscular Volume 94.2 fL (83.0-100.0); Mean Platelet Volume 10.2 fL (9.4-12.4); Monocytes # 1.5 K/mcL (0.0-1.3); Monocytes % 8.5 %; Platelet Count 176 K/mcL (140-400); Red Blood Count 4.33 M/mcL (4.19-5.50); Red Cell Distribution Width 13.5 % (11.5-14.5); Segmented Neutrophils % 84.4 %; White Blood Count 17.8 K/mcL (4.3-11.1)
[2019-06-13 06:15] LABS: Alanine Aminotransferase 23 Units/L (7-52); Albumin 2.6 g/dL (3.5-5.7); Albumin/Globulin Ratio 0.9 (1.1-2.2); Alkaline Phosphatase 354 Units/L (34-104); Aspartate Amino Transferase 37 Units/L (13-39); BUN/Creatinine Ratio 50 (6-26); Bilirubin,Total 0.7 mg/dL (0.3-1.0); Blood Urea Nitrogen 28 mg/dL (8-23); Calcium 8.2 mg/dL (8.6-10.3); Carbon Dioxide 23 mEq/L (23-29); Chloride 99 mEq/L (98-107); Glucose 108 mg/dL (70-105); Osmolality,Calculated 284 (280-300); Potassium 4.3 mEq/L (3.5-5.1); Sodium 134 mEq/L (136-145); Total Protein 5.6 g/dL (6.4-8.9); eGFR For African Americans > 60 (> 60); eGFR For Non-African Americans > 60 (> 60)
[2019-06-13] MEDS ORDERED: 0.9 % Sodium Chloride 500 ML ONE ×2 (08:18→09:01)
[2019-06-13] MEDS: Sennosides/Docusate Sodium TABLET PO SCH (08:25)
[2019-06-13] MEDS: Metoprolol XL (24 HR) Succ 25 MG TAB.ER.24H PO SCH (08:25)
[2019-06-13] MEDS: Piperacillin/Tazobactam 3.375 GM in 0.9 % Sodium Chloride Mini Bag 100 ML IVPB SCH (08:25)
[2019-06-13] MEDS ORDERED: *HR* HYDROmorphone 2 MG/ML SYRINGE IVP PRN (08:29)
[2019-06-13] MEDS: Ondansetron 4 MG/2 ML VIAL IVP PRN (08:38)
[2019-06-13] MEDS ORDERED: *HR* FentaNYL (PF) 100 MCG/2 ML VIAL IVP ONE (08:55)
[2019-06-13] MEDS ORDERED: *HR* Midazolam HCl 2 MG/2 ML VIAL IVP ONE (08:57)
--- NOTE | 2019-06-13 09:13 | Palliative Progress Note ---
<KishanNehal Kevin - Last Filed: 06/13/19 14:17> Date of Encounter: 06/13/19 Time of Encounter: 07:40 - Assessment and plan (1) Goals of care, counseling/discussion Current Visit: Yes Status: Acute Assessment and plan: At this time patient has agreed to hospice care. Plan will be for discharge home once cleared by IM attending. Patient's sister is his HPOA, and is planning with family and friends to be able to support the patients wishes to remain home as long as possible. Patient will have [facility] at home. Discussed with patient the need to Plurex to be drained every 3-4 days to prevent abdominal p ain from build up of ascites. (2) Constipation Current Visit: Yes Status: Acute Assessment and plan: Likely multifactorial. Patient had Plurex catheter placed today. Ascites could be contributing to his current constipation. - Stop Dulcolax 10mg PO daily - Start Miralax daily - Continue Senna Plus BID Qualifiers: Constipation type: other constipation type Qualified Code(s): K59.09 - Other constipation (3) Nausea & vomiting Current Visit: Yes Status: Resolved Assessment and plan: Patient reports improvement in his nausea and vomiting at this time Qualifiers: Vomiting type: bilious vomiting Qualified Code(s): R11.14 - Bilious vomiting (4) Pancreatic cancer Current Visit: Yes Status: Chronic Qualifiers: Pancreatic malignancy location: body of pancreas Qualified Code(s): C25.1 - Malignant neoplasm of body of pancreas (5) Abdominal pain Current Visit: Yes Status: Acute Assessment and plan: Patient has apparent improvement in pain after placement of plurex catheter and drainage of about 5L of fluid. Patient is reluctant to use breakthrough pain medication due to his current constipation. Patient was encouraged to make use of them if needed for comfort. - Change Oxycodone 10mg SL Q6H to PRN for pain - Stop Dilaudid 1mg IVP Q2H PRN for breakthrough pain Patient has PRN morphine at home through [facility]. Qualifiers: Abdominal location: generalized Qualified Code(s): R10.84 - Generalized abdominal pain (6) Malignant ascites Current Visit: Yes Status: Acute Assessment and plan: - Patient had Plurex Catheter placed today - Time Spent With Patient Total time spent is greater than 50% in coordination of care (as documented) at patient's floor/unit and/or counseling patient: 25 - 35 minutes - Subjective Interval history: Mr. Estrada is a 78 year old male presenting for nausea and vomiting with a recent diagnosis of pancreatic cancer diagnosed on 05/20/2019 with metastasis to liver and lung. He was seen this morning around 7:40 AM. He continues to report intermittent abdominal pain today. He is worried about constipation, and is asking about having an enema. He also reports concerns about continued use of PRN opioid pain medications due to his current constipation. Patient is also aware that other factors such as his ascites and cancer could be contributing to his current constipation. He denies vomiting at this time. He reports that he is ready to get his Pluerx catheter and is ready to return home. Patient was seen again around 11:00 AM. Several friends were present, Patient had a glas of ice cubes that he was eating. He reports that 5L of fluid was drained from him today after the placement of the pluerx catheter. He reports that about 8 days ago was his last pleurocentesis where 5L was also drained at that time. He reports that his abdominal pain has improved after the draining of this fluid. He is inquiring about his diet, reporting that he has concerns about the use of his dentures as they made him gag a few days ago. Patient was encouraged to eat if he is desiring to do so, but he can wait until he returns home to try wearing his dentures again if needed. - Constitutional Vitals: Abnormal lab results WBC 17.8 K/mcL (4.3-11.1) H 06/13/19 05:11 RBC 4.05 M/mcL (4.19-5.50) L 06/11/19 05:20 Hgb 12.8 g/dL (12.9-16.9) L 06/12/19 05:22 Hct 36.6 % (37.5-50.1) L 06/10/19 04:49 Band Neutrophils % 16.0 % (0-4) H 06/10/19 04:49 Neutrophils # 15.0 K/mcL (1.6-8.9) H 06/13/19 05:11 Lymphocytes # 0.4 K/mcL (0.6-4.6) L 06/12/19 05:22 Monocytes # 1.5 K/mcL (0.0-1.3) H 06/13/19 05:11 PT 15.4 Seconds (9.4-12.1) H 06/11/19 05:20 Sodium 134 mEq/L (136-145) L 06/13/19 05:11 Potassium 5.4 mEq/L (3.5-5.1) H 06/09/19 13:24 Chloride 94 mEq/L (98-107) L 06/09/19 13:24 Carbon Dioxide 22 mEq/L (23-29) L 06/12/19 05:22 BUN 28 mg/dL (8-23) H 06/13/19 05:11 Creatinine 0.56 mg/dL (0.70-1.30) L 06/13/19 05:11 BUN/Creatinine Ratio 50 (6-26) H 06/13/19 05:11 Glucose 108 mg/dL (70-105) H 06/13/19 05:11 POC Glucose 107 mg/dL (70-99) H 06/12/19 05:56 Calculated Osmolality 278 (280-300) L 06/10/19 08:25 Calcium 8.2 mg/dL (8.6-10.3) L 06/13/19 05:11 Total Bilirubin 1.4 mg/dL (0.3-1.0) H 06/09/19 13:24 AST 43 Units/L (13-39) H 06/09/19 13:24 Alkaline Phosphatase 354 Units/L (34-104) H 06/13/19 05:11 Serum Total Protein 5.6 g/dL (6.4-8.9) L 06/13/19 05:11 Albumin 2.6 g/dL (3.5-5.7) L 06/13/19 05:11 Albumin/Globulin Ratio 0.9 (1.1-2.2) L 06/13/19 05:11 Lipase < 3 Units/L (11-82) L 06/09/19 13:24 Procalcitonin 1.49 ng/mL (0.00-0.15) H 06/09/19 20:08 General appearance: Present: cooperative, mild distress - Head Head exam: Present: atraumatic, normocephalic - ENT ENT exam: Present: mucous membranes moist - Neck Neck exam: Present: full ROM - Respiratory Respiratory exam: Present: CTAB. Absent: accessory muscle use, rales, rhonchi, wheezes - Cardiovascular Cardiovascular exam: Present: RRR, +S1, +S2 - GI/Abdominal GI/Abdominal exam: Present: diminished bowel sounds, distended, firm Additional comments: Patient has minimal bowel sounds today. - Expanded Abdominal Exam GI/Abdominal exam: Present: ascites - Extremities Exam Extremities exam: Present: pedal edema - Neurological Exam Neurological exam: Present: alert, oriented X3 Palliative Quality Palliative Quality: Screen for Code Status: Yes, Screen for Goals of Care: Yes, Screen for Pain: Yes, If Pain Regimen Started, Initiate Bowel Regimen: NA, Screen for Nausea/Vomitting: Yes Code Status: 06/09/19 18:44 Resuscitation Status: Active [RES] Routine Comment: Resuscitation Status: Full Code 06/11/19 14:01 DNR [Resuscitation Status: Active] [RES] Routine Comment: Resuscitation Status: DNR-Comfort Care - Labs CBC & Chem 7: 06/13/19 05:11 06/13/19 05:11 Labs: Laboratory Results - last 24 hr 06/09/19 06/10/19 06/12/19 23:27 05:51 05:56 WBC RBC Hgb Hct MCV MCH MCHC RDW Plt Count MPV Immature Gran % Seg Neutrophils % Lymphocytes % Monocytes % Eosinophils % Basophils % Neutrophils # Lymphocytes # Monocytes # Eosinophils # Basophils # Sodium Potassium Chloride Carbon Dioxide BUN Creatinine Est GFR ( Amer) Est GFR (Non-Af Amer) BUN/Creatinine Ratio Glucose POC Glucose 89 87 107 H Calculated Osmolality Calcium Total Bilirubin AST ALT Alkaline Phosphatase Serum Total Protein Albumin Globulin Albumin/Globulin Ratio 06/12/19 06/13/19 06/13/19 11:39 05:11 05:11 WBC 17.8 H RBC 4.33 Hgb 13.3 Hct 40.8 MCV 94.2 MCH 30.7 MCHC 32.6 RDW 13.5 Plt Count 176 MPV 10.2 Immature Gran % 2.8 Seg Neutrophils % 84.4 Lymphocytes % 3.3 Monocytes % 8.5 Eosinophils % 0.4 Basophils % 0.6 Neutrophils # 15.0 H Lymphocytes # 0.6 Monocytes # 1.5 H Eosinophils # 0.1 Basophils # 0.1 Sodium 134 L Potassium 4.3 Chloride 99 Carbon Dioxide 23 BUN 28 H Creatinine 0.56 L Est GFR ( Amer) > 60 Est GFR (Non-Af Amer) > 60 BUN/Creatinine Ratio 50 H Glucose 108 H POC Glucose 92 Calculated Osmolality 284 Calcium 8.2 L Total Bilirubin 0.7 AST 37 ALT 23 Alkaline Phosphatase 354 H Serum Total Protein 5.6 L Albumin 2.6 L Globulin 3.0 Albumin/Globulin Ratio 0.9 L 06/13/19 05:31 WBC RBC Hgb Hct MCV MCH MCHC RDW Plt Count MPV Immature Gran % Seg Neutrophils % Lymphocytes % Monocytes % Eosinophils % Basophils % Neutrophils # Lymphocytes # Monocytes # Eosinophils # Basophils # Sodium Potassium Chloride Carbon Dioxide BUN Creatinine Est GFR ( Amer) Est GFR (Non-Af Amer) BUN/Creatinine Ratio Glucose POC Glucose 93 Calculated Osmolality Calcium Total Bilirubin AST ALT Alkaline Phosphatase Serum Total Protein Albumin Globulin Albumin/Globulin Ratio - ABG Interpretation ABG results: PT/INR, D-dimer PT 15.4 Seconds (9.4-12.1) H 06/11/19 05:20 Palliative Scale - Palliative Performance Scale How ambulatory is this patient?: Mainly sit / lie What is patient's level of activity and evidence of disease?: Unable normal job/work, Significant disease How much self-care assistance does patient require?: Occasional assistance necessary How much oral intake does the patient have?: Normal or reduced What is this patient's level of consciousness?: Full Palliative Performance Score: 60 % Consult Discharge Plan - Plan Instructions: Pancreatic Cancer (DC) Referrals: Jeovany Calero Jr, MD [Non-Partnered Physician] - Prescriptions: Amoxicillin/Clavulanate [Augmentin] 500 mg PO BIDWM 5 Days #10 tablet Polyethylene Glycol 3350 [MiraLAX] 17 gm PO DAILY 30 Days #30 powd.pack OxyCODONE Oral CONC [Oxycodone Oral Conc] 10 mg SL Q8HR PRN 30 Days #90 oral.syg PRN Reason: Pain Sennosides/Docusate Sodium [Senna Plus] 2 each PO BID 30 Days #120 tablet Ondansetron HCl [Zofran] 4 mg PO Q8HR PRN 30 Days #90 tablet PRN Reason: nausea <Elly Oliver - Last Filed: 06/13/19 16:45> Date of Encounter: 06/13/19 - Assessment and plan (1) Abdominal pain Current Visit: Yes Status: Acute Qualifiers: Abdominal location: generalized Qualified Code(s): R10.84 - Generalized abdominal pain (2) Nausea & vomiting Current Visit: Yes Status: Resolved Qualifiers: Vomiting type: bilious vomiting Qualified Code(s): R11.14 - Bilious vomiting (3) Goals of care, counseling/discussion Current Visit: Yes Status: Acute (4) Malignant ascites Current Visit: Yes Status: Acute (5) Pancreatic cancer Current Visit: Yes Status: Chronic Qualifiers: Pancreatic malignancy location: body of pancreas Qualified Code(s): C25.1 - Malignant neoplasm of body of pancreas (6) Palliative care encounter Current Visit: Yes Status: Acute - Time Spent With Patient Total time spent is greater than 50% in coordination of care (as documented) at patient's floor/unit and/or counseling patient: - Constitutional Vitals: Abnormal lab results WBC 17.8 K/mcL (4.3-11.1) H 06/13/19 05:11 RBC 4.05 M/mcL (4.19-5.50) L 06/11/19 05:20 Hgb 12.8 g/dL (12.9-16.9) L 06/12/19 05:22 Hct 36.6 % (37.5-50.1) L 06/10/19 04:49 Band Neutrophils % 16.0 % (0-4) H 06/10/19 04:49 Neutrophils # 15.0 K/mcL (1.6-8.9) H 06/13/19 05:11 Lymphocytes # 0.4 K/mcL (0.6-4.6) L 06/12/19 05:22 Monocytes # 1.5 K/mcL (0.0-1.3) H 06/13/19 05:11 PT 15.4 Seconds (9.4-12.1) H 06/11/19 05:20 Sodium 134 mEq/L (136-145) L 06/13/19 05:11 Potassium 5.4 mEq/L (3.5-5.1) H 06/09/19 13:24 Chloride 94 mEq/L (98-107) L 06/09/19 13:24 Carbon Dioxide 22 mEq/L (23-29) L 06/12/19 05:22 BUN 28 mg/dL (8-23) H 06/13/19 05:11 Creatinine 0.56 mg/dL (0.70-1.30) L 06/13/19 05:11 BUN/Creatinine Ratio 50 (6-26) H 06/13/19 05:11 Glucose 108 mg/dL (70-105) H 06/13/19 05:11 POC Glucose 107 mg/dL (70-99) H 06/12/19 05:56 Calculated Osmolality 278 (280-300) L 06/10/19 08:25 Calcium 8.2 mg/dL (8.6-10.3) L 06/13/19 05:11 Total Bilirubin 1.4 mg/dL (0.3-1.0) H 06/09/19 13:24 AST 43 Units/L (13-39) H 06/09/19 13:24 Alkaline Phosphatase 354 Units/L (34-104) H 06/13/19 05:11 Serum Total Protein 5.6 g/dL (6.4-8.9) L 06/13/19 05:11 Albumin 2.6 g/dL (3.5-5.7) L 06/13/19 05:11 Albumin/Globulin Ratio 0.9 (1.1-2.2) L 06/13/19 05:11 Lipase < 3 Units/L (11-82) L 06/09/19 13:24 Procalcitonin 1.49 ng/mL (0.00-0.15) H 06/09/19 20:08 - Attending Attestation I examined this patient and my medical decision-making was reviewed with the Resident Physician. I agree with the documented findings, disposition and treatment plan as described except to the extent set forth below. Palliative Quality Code Status: 06/09/19 18:44 Resuscitation Status: Active [RES] Routine Comment: Resuscitation Status: Full Code 06/11/19 14:01 DNR [Resuscitation Status: Active] [RES] Routine Comment: Resuscitation Status: DNR-Comfort Care - Labs CBC & Chem 7: 06/13/19 05:11 06/13/19 05:11 Labs: Laboratory Results - last 24 hr 06/09/19 06/10/19 06/12/19 23:27 05:51 05:56 WBC RBC Hgb Hct MCV MCH MCHC RDW Plt Count MPV Immature Gran % Seg Neutrophils % Lymphocytes % Monocytes % Eosinophils % Basophils % Neutrophils # Lymphocytes # Monocytes # Eosinophils # Basophils # Sodium Potassium Chloride Carbon Dioxide BUN Creatinine Est GFR ( Amer) Est GFR (Non-Af Amer) BUN/Creatinine Ratio Glucose POC Glucose 89 87 107 H Calculated Osmolality Calcium Total Bilirubin AST ALT Alkaline Phosphatase Serum Total Protein Albumin Globulin Albumin/Globulin Ratio 06/13/19 06/13/19 06/13/19 05:11 05:11 05:31 WBC 17.8 H RBC 4.33 Hgb 13.3 Hct 40.8 MCV 94.2 MCH 30.7 MCHC 32.6 RDW 13.5 Plt Count 176 MPV 10.2 Immature Gran % 2.8 Seg Neutrophils % 84.4 Lymphocytes % 3.3 Monocytes % 8.5 Eosinophils % 0.4 Basophils % 0.6 Neutrophils # 15.0 H Lymphocytes # 0.6 Monocytes # 1.5 H Eosinophils # 0.1 Basophils # 0.1 Sodium 134 L Potassium 4.3 Chloride 99 Carbon Dioxide 23 BUN 28 H Creatinine 0.56 L Est GFR ( Amer) > 60 Est GFR (Non-Af Amer) > 60 BUN/Creatinine Ratio 50 H Glucose 108 H POC Glucose 93 Calculated Osmolality 284 Calcium 8.2 L Total Bilirubin 0.7 AST 37 ALT 23 Alkaline Phosphatase 354 H Serum Total Protein 5.6 L Albumin 2.6 L Globulin 3.0 Albumin/Globulin Ratio 0.9 L - Impressions Impressions Fluoroscopy 06/13/19 00:00 IMPRESSION: Successful abdominal PleurX catheter placement secondary to recurrent abdominal ascites related to pancreatic cancer. No immediate complications. D/ / 06/13/2019 12:08:14 Nazario Durand MD / hardy Interpreting Provider: Nazario Durand MD Insertion Tunneled Catheter 06/13/19 00:00 IMPRESSION: Successful abdominal PleurX catheter placement secondary to recurrent abdominal ascites related to pancreatic cancer. No immediate complications. D/ / 06/13/2019 12:08:14 Nazario Durand MD / hardy Interpreting Provider: Nazario Durand MD - ABG Interpretation ABG results: PT/INR, D-dimer PT 15.4 Seconds (9.4-12.1) H 06/11/19 05:20
--- NOTE | 2019-06-13 09:41 | IR Procedure Note ---
Date of procedure: 06/13/19 Consent Obtained: Verbal consent, Written consent Timeout: Correct patient and procedure verified, Correct site verified, Time out performed, Skin prep completed Local anesthetic: Lidocaine 1% Was there an dam tender assistant present: No Estimated blood loss (cc): 2 Complications: None; Tolerated procedure well Indications: Recurrent ascites Procedure Performed: Abdominal pleurx catheter placement Site/Technique: Tunneled left abdominal pleurx catheter placed in VIR Results/Findings (any specimens removed): Moderate ascites present Post Procedure Treatment Plan: OK to use for drainage Specimen: Moderate ascites
--- NOTE | 2019-06-13 10:36 | Internal Med Progress Note ---
Hospitalist Progress Note - Encounter Date of Encounter: 06/13/19 - Exam Vitals: Temp Pulse Resp BP Pulse Ox 98.0 F 94 8 125/82 96 06/13/19 03:40 06/13/19 09:24 06/13/19 09:24 06/13/19 09:24 06/13/19 09:24 - Assessment and Plan (1) Generalized abdominal fullness Current Visit: Yes Status: Acute (2) Nausea & vomiting Current Visit: Yes Status: Resolved (3) Pneumonia Current Visit: Yes Status: Suspected (4) Hyponatremia Current Visit: Yes Status: Acute (5) Hyperkalemia Current Visit: Yes Status: Resolved (6) Constipation Current Visit: Yes Status: Acute (7) Tachycardia Current Visit: Yes Status: Chronic (8) Pancreatic cancer Current Visit: Yes Status: Chronic - Time Spent with Patient Total time spent is greater than 50% in coordination of care (as documented) at patient's floor/unit and/or counseling patient: Internal Medicine: Result - Labs CBC & Chem 7: 06/13/19 05:11 06/13/19 05:11 Labs: Short CBC 06/13/19 Range/Units 05:11 WBC 17.8 H (4.3-11.1) K/mcL Hgb 13.3 (12.9-16.9) g/dL Hct 40.8 (37.5-50.1) % Plt Count 176 (140-400) K/mcL Neutrophils # 15.0 H (1.6-8.9) K/mcL BMP 06/13/19 05:11 Sodium 134 L Potassium 4.3 Chloride 99 Carbon Dioxide 23 BUN 28 H Creatinine 0.56 L Glucose 108 H Calcium 8.2 L Liver Function 06/13/19 Range/Units 05:11 Total Bilirubin 0.7 (0.3-1.0) mg/dL AST 37 (13-39) Units/L ALT 23 (7-52) Units/L Alkaline Phosphatase 354 H (34-104) Units/L Albumin 2.6 L (3.5-5.7) g/dL - ABG Interpretation ABG results: PT/INR, D-dimer PT 15.4 Seconds (9.4-12.1) H 06/11/19 05:20 Consult Discharge Plan - Plan Referrals: Jeovany Calero Jr, MD [Non-Partnered Physician] - (2) Nausea & vomiting Qualifiers: Vomiting type: bilious vomiting Qualified Code(s): R11.14 - Bilious vomiting (3) Pneumonia Qualifiers: Pneumonia type: aspiration pneumonia Aspiration pneumonia type: due to regurgitated food Laterality: right Lung location: lower lobe of lung Q ualified Code(s): J69.0 - Pneumonitis due to inhalation of food and vomit (6) Constipation Qualifiers: Constipation type: other constipation type Qualified Code(s): K59.09 - Other constipation (8) Pancreatic cancer Qualifiers: Pancreatic malignancy location: body of pancreas Qualified Code(s): C25.1 - Malignant neoplasm of body of pancreas
--- NOTE | 2019-06-13 14:39 | Discharge Summary ---
<Angie Antoine I - Last Filed: 06/13/19 14:25> - NOTES TO OUTPATIENT PROVIDER Notes to Outpatient Provider: Mr. Estrada is a 78 year old male presenting for nausea and vomiting with a recent diagnosis of pancreatic cancer diagnosed on 05/20/2019 with metastasis to liver and lung. Patient has agreed to hospice care. Plan will be for discharge home with home health care . Patient had Plurex catheter placed today. Discussed with patient the need to Plurex to be drained every 3-4 days to prevent abdominal pain from build up of ascites. Orders not resulted at time of discharge: Pending orders 06/09/19 13:47 Culture,Blood [BC] Stat 06/13/19 08:49 Urinalysis reflex Microscopic [URIN] Stat Date of Encounter: 06/13/19 Time of Encounter: 08:50 - Discharge Diagnosis (1) Generalized abdominal fullness Priority: Primary Status: Acute (2) Nausea & vomiting Priority: Secondary Status: Resolved Qualifiers: Vomiting type: bilious vomiting Qualified Code(s): R11.14 - Bilious vomiting (3) Pneumonia Priority: Secondary Status: Suspected Qualifiers: Pneumonia type: aspiration pneumonia Aspiration pneumonia type: due to regurgitated food Laterality: right Lung location: lower lobe of lung Qualified Code(s): J69.0 - Pneumonitis due to inhalation of food and vomit (4) Hyponatremia Priority: Secondary Status: Acute (5) Hyperkalemia Priority: Secondary Status: Resolved (6) Constipation Priority: Secondary Status: Acute Qualifiers: Constipation type: other constipation type Qualified Code(s): K59.09 - Other constipation (7) Tachycardia Priority: Secondary Status: Chronic (8) Pancreatic cancer Priority: Secondary Status: Chronic Qualifiers: Pancreatic malignancy location: body of pancreas Qualified Code(s): C25.1 - Malignant neoplasm of body of pancreas Hospital course: Mr. Estrada is a 78 year old male presenting for nausea and vomiting with a recent diagnosis of pancreatic cancer diagnosed on 05/20/2019 with metastasis to liver and lung. At time of admission Abdomen CT 06/09/19 showed Moderate amount of ascites ,Peritoneal carcinomatosis.Pancreatic body malignant mass with metastatic disease to the liver.Metastatic Adenopathy also present in the abdomen. Mild dilation of small bowel loops throughout the abdomen. CXR Low lung volumes with bibasilar atelectasis. Superimposed pneumonia . Surgery were cons ulted and no surgical intervention were recommended . His nausea and vomiting responded well to zofran , he was treated with zosin for pneumonia and he finished 5 days of total 10 days course of antibiotic . Palliative care were consulted and patient agreed to hospice care at home . Patient underwent abdominal plurex catheter placement for symptomatic relief and patient has apparent improvement in pain . Ale godoy did not have a bowel movement but he passed gases . Patient will be discharged home with 5 more days of Augmentin , Zofran for nausea , Mirlac and senna plus for constipation . Patient has PRN morphine at home [facility]. Patients wishes to remain home as long as possible. Patient will have [facility] at home. Discussed with patient the need to Plurex to be drained every 3-4 days to prevent abdominal pain from build up of ascites. - Time Spent with Patient Total time spent providing and/or coordinating discharge services: - Discharge Medications Prescriptions: New Amoxicillin/Clavulanate [Augmentin] 500 mg PO BIDWM 5 Days #10 tablet Polyethylene Glycol 3350 [MiraLAX] 17 gm PO DAILY 30 Days #30 powd.pack Sennosides/Docusate Sodium [Senna Plus] 2 each PO BID 30 Days #120 tablet Ondansetron HCl [Zofran] 4 mg PO Q8HR PRN 30 Days #90 tablet PRN Reason: nausea Continued Morphine Sulfate Immed Rel [Morphine Sulfate] 15 mg PO Q2H PRN PRN Reason: Pain Haloperidol 0.5 mg PO Q6H PRN PRN Reason: Nausea Atorvastatin Calcium [Lipitor] 20 mg PO DAILY Pantoprazole Sodium [Protonix] 40 mg PO DAILY Discontinued Sennosides [Senna] 8.6 mg PO BID Home Medications: Haloperidol 0.5 mg PO Q6H PRN 06/09/19 [History] Morphine Sulfate Immed Rel [Morphine Sulfate] 15 mg PO Q2H PRN 06/09/19 [History] Atorvastatin Calcium [Lipitor] 20 mg PO DAILY 06/10/19 [History] Pantoprazole Sodium [Protonix] 40 mg PO DAILY 06/10/19 [History] Amoxicillin/Clavulanate [Augmentin] 500 mg PO BIDWM 5 Days #10 tablet 06/13/19 [Rx] Ondansetron HCl [Zofran] 4 mg PO Q8HR PRN 30 Days #90 tablet 06/13/19 [Rx] Polyethylene Glycol 3350 [MiraLAX] 17 gm PO DAILY 30 Days #30 powd.pack 06/13/19 [Rx] Sennosides/Docusate Sodium [Senna Plus] 2 each PO BID 30 Days #120 tablet 06/13/19 [Rx] Allergies/Adverse Reactions: Allergy/AdvReac Type Severity Reaction Status Date / Time cephalexin Allergy Hives Verified 06/10/19 10:25 clobetasol Allergy Hives Verified 06/10/19 10:25 prednisone Allergy Hives Verified 06/10/19 10:25 Date of admission: 06/11/19 16:55 Primary care physician: PCP NONE Consults: 06/09/19 15:34 Consult to Surgery [CONS] Stat Consulting Provider: Acute Care Surgery Reason for Consult: Abdominal distention w/ possible obstruction 2/2 pancreatic cancer Time Notified: 15:34 Call Completed: No 06/09/19 17:28 Consult to Nutrition [CONS] Routine Comment: Consulting Provider: NUTRITION Reason for Dietary Consult: MST Score 06/10/19 11:44 Consult to Palliative Care [CONS] Routine Comment: Consulting Provider: Palliative Care Lona Reason for Consult: metastatic pancreatic cancer Call Completed: No 06/11/19 09:07 Consult to Medical Lead [CONS] Routine Reason for SW Consult: Discharge planning 06/11/19 12:50 Consult to Occupational Therapy [CONS] Routine Comment: Evaluate, develop and implement POC Reason for Consult: eval and treat Does patient have active BEDREST order?: No Is patient medically & hemodynamically stable?: Yes Consult to Physical Therapy [CONS] Routine Comment: Evaluate, develop and implement POC Reason for Consult: eval and treat Does patient have active BEDREST order?: No Is patient medically & hemodynamically stable?: Yes 06/11/19 15:13 Consult to Interventional Radiology [CONS] Routine Consulting Provider: Radiology Interventional Cols Reason for Consult: Fast reaccumulating malignant ascites, evaluation for pleurx catheter placement for palliative reasons Time Notified: 15:16 Call Completed: Yes - Constitutional Vitals: Temp Pulse Resp BP Pulse Ox 97.4 F L 97 15 113/74 93 06/13/19 12:28 06/13/19 12:28 06/13/19 12:28 06/13/19 12:28 06/13/19 12:28 Exam: General: no acute distress , A&AX3 HEENT: Atraumatic, Normocephaly, sclera unicteric Neck: supple , Full ROM , trachea midline Cardiac: RRR , S1+. S2+ Lungs: Normal Breath Sounds Bilaterally, No Wheeze, Rales, Rhonchi Abdomen: Distended , hard to palpate . Tender , -ve bowel sounds , dull to percussion Extremities: bilateral LL edema , Normal Pulses Skin : intact , Normal color Psychiatric : normal affect, normal mood Nuero : alert, normal gait, oriented X3 - Patient Status Disposition: Home Health Service Condition: Fair - Discharge Instructions Instructions: Pancreatic Cancer (DC) Follow Up With: Jeovany Calero Jr, MD [Non-Partnered Physician] - Forms: ED Satisfaction Letter <Lisbethtyrell - Last Filed: 06/13/19 16:00> Orders not resulted at time of discharge: Pending orders 06/09/19 13:47 Culture,Blood [BC] Stat 06/13/19 08:49 Urinalysis reflex Microscopic [URIN] Stat Date of Encounter: 06/13/19 Time of Encounter: 15:48 - Discharge Diagnosis (1) Pneumonia Status: Suspected Qualifiers: Pneumonia type: aspiration pneumonia Aspiration pneumonia type: due to regurgitated food Laterality: right Lung location: lower lobe of lung Qualified Code(s): J69.0 - Pneumonitis due to inhalation of food and vomit (2) Malignant ascites Status: Acute (3) Peritoneal carcinomatosis Status: Acute (4) Abdominal pain Status: Acute Qualifiers: Abdominal location: generalized Qualified Code(s): R10.84 - Generalized abdominal pain (5) Hyponatremia Status: Acute (6) Tachycardia Status: Chronic (7) Pancreatic cancer Status: Chronic Qualifiers: Pancreatic malignancy location: body of pancreas Qualified Code(s): C25.1 - Malignant neoplasm of body of pancreas Hospital course: Mr. Estrada is a 78 year old male - Time Spent with Patient Total time spent providing and/or coordinating discharge services: Date of admission: 06/11/19 16:55 Primary care physician: PCP NONE Consults: 06/09/19 15:34 Consult to Surgery [CONS] Stat Consulting Provider: Acute Care Surgery Reason for Consult: Abdominal distention w/ possible obstruction 2/2 pancreatic cancer Time Notified: 15:34 Call Completed: No 06/09/19 17:28 Consult to Nutrition [CONS] Routine Comment: Consulting Provider: NUTRITION Reason for Dietary Consult: MST Score 06/10/19 11:44 Consult to Palliative Care [CONS] Routine Comment: Consulting Provider: Palliative Care Lona Reason for Consult: metastatic pancreatic cancer Call Completed: No 06/11/19 09:07 Consult to Medical Lead [CONS] Routine Reason for SW Consult: Discharge planning 06/11/19 12:50 Consult to Occupational Therapy [CONS] Routine Comment: Evaluate, develop and implement POC Reason for Consult: eval and treat Does patient have active BEDREST order?: No Is patient medically & hemodynamically stable?: Yes Consult to Physical Therapy [CONS] Routine Comment: Evaluate, develop and implement POC Reason for Consult: eval and treat Does patient have active BEDREST order?: No Is patient medically & hemodynamically stable?: Yes 06/11/19 15:13 Consult to Interventional Radiology [CONS] Routine Consulting Provider: Radiology Interventional Cols Reason for Consult: Fast reaccumulating malignant ascites, evaluation for pleurx catheter placement for palliative reasons Time Notified: 15:16 Call Completed: Yes - Constitutional Vitals: Temp Pulse Resp BP Pulse Ox 97.4 F L 97 15 113/74 93 06/13/19 12:28 06/13/19 12:28 06/13/19 12:28 06/13/19 12:28 06/13/19 12:28 - Attending Attestation I saw evaluated and examined this patient and reviewed objective data including labs and my medical decision-making was reviewed with the Resident Physician, Angie Antoine. I agree with the documented findings, disposition and discharge plan as described except to any changes set forth below. We independently had [id number] contact with the patient. Patient with a history of pancreatic cancer with metastasis to the liver and lung was hospitalized here with symptoms of nausea and vomiting along with abdominal distention and bloating. Workup initially also suggested that he had a pneumonia in the right lung base. Patient was started on antibiotics for this. Given his cancer, surgery was consulted to see if he would be a surgical candidate for any palliative treatment. However surgery did not recommend any intervention. They recommended palliative care consult. As such palliative care was consulted and they discussed plan of care with patient and family. Patient wishes to go home with hospice and this is being arranged. Patient also underwent placement of Pleurx catheter as he has malignant ascites which is causing abdominal distention and pain. Patient will be discharged on Augmentin to complete antibiotic course for what probably was an episode of aspiration pneumonia. For pain, he will be on oxycodone 10 mg sublingual every 6 hours as needed which seems to be controlling his symptoms well. He will also be on laxatives to help treat his constipation. Time spent on discharge: 8 min
--- NOTE | 2019-06-13 14:59 | Physician Discharge Referral ---
<Angie Antoine I - Last Filed: 06/13/19 14:58> Home Health/Hosp Referral Info Transfer to: Home Health - Diagnosis (1) Generalized abdominal fullness Priority: Primary Status: Acute (2) Nausea & vomiting Priority: Secondary Status: Resolved (3) Pneumonia Priority: Secondary Status: Suspected (4) Hyponatremia Priority: Secondary Status: Acute (5) Hyperkalemia Priority: Secondary Status: Resolved (6) Constipation Priority: Secondary Status: Acute (7) Tachycardia Priority: Secondary Status: Chronic (8) Pancreatic cancer Priority: Secondary Status: Chronic - Respiratory Orders None Smoking Cessation: Smoking cessation has been advised. For more information, call the [place] Tobacco Quit Line at 7-750-NUWN-NOW. - Diet/Nutrition Diet/Nutrition Orders: Regular, Mechanical Soft - Activity Activity Orders: Chair - Services Needed Following services are medically necessary services: Nursing, Home Health Aide, Physical Therapy, Occupational Therapy - Transfer Medications Prescriptions: Amoxicillin/Clavulanate [Augmentin] 500 mg PO BIDWM 5 Days #10 tablet Polyethylene Glycol 3350 [MiraLAX] 17 gm PO DAILY 30 Days #30 powd.pack Sennosides/Docusate Sodium [Senna Plus] 2 each PO BID 30 Days #120 tablet Ondansetron HCl [Zofran] 4 mg PO Q8HR PRN 30 Days #90 tablet PRN Reason: nausea Home Medications: Haloperidol 0.5 mg PO Q6H PRN 06/09/19 [History] Atorvastatin Calcium [Lipitor] 20 mg PO DAILY 06/10/19 [History] Pantoprazole Sodium [Protonix] 40 mg PO DAILY 06/10/19 [History] Amoxicillin/Clavulanate [Augmentin] 500 mg PO BIDWM 5 Days #10 tablet 06/13/19 [Rx] Ondansetron HCl [Zofran] 4 mg PO Q8HR PRN 30 Days #90 tablet 06/13/19 [Rx] Polyethylene Glycol 3350 [MiraLAX] 17 gm PO DAILY 30 Days #30 powd.pack 06/13/19 [Rx] Sennosides/Docusate Sodium [Senna Plus] 2 each PO BID 30 Days #120 tablet 06/13/19 [Rx] Allergies/Adverse Reactions: Allergy/AdvReac Type Severity Reaction Status Date / Time cephalexin Allergy Hives Verified 06/10/19 10:25 clobetasol Allergy Hives Verified 06/10/19 10:25 prednisone Allergy Hives Verified 06/10/19 10:25 Certification: Further, I certify that my clinical findings support that this patient is homebound (i.e. absences from home require considerable and taxing effort and are for medical reasons or episcopal services or infrequently or short duration when for other reasons) because: Homebound Reason: Patient requires assistance of a person or device to safely leave home, Leaving home requires considerable and taxing effort due to condition Attestation: My signature below is to certify that this patient is under my care and that I, or nurse practitioner, or a physician's evaluation assistant working with me, has a [id number] encounter with this patient. <Cristina Bob - Last Filed: 06/13/19 15:57> Home Health/Hosp Referral Info Transfer to: Hospice Provider in Charge Post Discharge: Supervisor [employer] - Diagnosis (1) Pneumonia Status: Suspected (2) Malignant ascites Priority: Secondary Status: Acute (3) Peritoneal carcinomatosis Priority: Secondary Status: Acute (4) Abdominal pain Priority: Secondary Status: Acute (5) Hyponatremia Status: Acute (6) Tachycardia Status: Chronic (7) Pancreatic cancer Status: Chronic - Respiratory Orders Smoking Cessation: Smoking cessation has been advised. For more information, call the [place] Tobacco Quit Line at 0-767-TVHM-NOW. Certification: Further, I certify that my clinical findings support that this patient is homebound (i.e. absences from home require considerable and taxing effort and are for medical reasons or episcopal services or infrequently or short duration when for other reasons) because: Attestation: My signature below is to certify that this patient is under my care and that I, or nurse practitioner, or a physician's evaluation assistant working with me, has a [id number] encounter with this patient.
[2019-06-13 16:01] VITALS: BP 117/77
== END 2019-06-13 16:57 | disposition hospice, home (50) ==
LOC: 3ANU 12:58 → EMEROOARM 12:58 → SUATTDRO 15:54 → 3ANU 16:19
PROVIDERS: ADMIT Internal Medicine; ATTEND Student in an Organized Health Care Education/Training Program